=== PATIENT | female | born 1930 | race Caucasian/White ===

== ENCOUNTER → 2016-11-26 | Outpatient (CLI) | payer MEDICARE, OTHER ==
[~2016-11-26] MED LIST: HYDR7.5T32 PO; LEVO.1 PO; LISI10TA PO; METO50CR PO
[2016-11-26 13:19] LABS: AUTOMATED NEUTROPHIL # 2.8 TH/MM3 (1.8-7.7); BASOPHIL % 0.7 % (0.0-2.0); EOSINOPHIL # 0.2 TH/MM3 (0-0.4); EOSINOPHIL % 3.8 % (0.0-4.0); HEMATOCRIT 40.1 % (35.0-46.0); HEMO FLAGS DIFF FINAL; LYMPH % 27.4 % (9.0-44.0); LYMPHOCYTE # 1.3 TH/MM3 (1.0-4.8); MEAN CELL VOLUME 85.6 FL (80.0-100.0); MEAN CORPUSCULAR HEMOGLOBIN 28.8 PG (27.0-34.0); MEAN CORPUSCULAR HGB CONC 33.6 % (32.0-36.0); MONO % 11.4 % (0.0-8.0); NEUT % 56.7 % (16.0-70.0); PLATELET COUNT 162 TH/MM3 (150-450); RED BLOOD COUNT 4.68 MIL/MM3 (4.00-5.30); RED CELL DISTRIBUTION WIDTH 13.9 % (11.6-17.2); WHITE BLOOD COUNT 4.9 TH/MM3 (4.0-11.0)
[2016-11-26 13:52] LABS: BACTERIA, URINE OCC /hpf; BLOOD, URINE NEG (NEG); GLUCOSE,URINE NEG (NEG); KETONE, URINE NEG (NEG); NITRITE,URINE NEG (NEG); PH, URINE 5.5 (5.0-8.5); SQUAMOUS EPITHELIAL CELL URINE 1 /hpf (0-5); URINE COLOR YELLOW (YELLW/STRAW)
[2016-11-26 13:53] LABS: ANION GAP 6 MEQ/L (5-15); AST (GOT) 22 U/L (15-37); BICARBONATE 29.8 MEQ/L (21.0-32.0); BLOOD UREA NITROGEN 23 MG/DL (7-18); CHLORIDE 107 MEQ/L (98-107); GLOMERULAR FILTRATION RATE 56 ML/MIN (>89); GLUCOSE,FASTING 82 MG/DL (74-99); POTASSIUM 4.2 MEQ/L (3.5-5.1); SODIUM (NA) 143 MEQ/L (136-145)
[2016-11-26 13:55] LABS: AMPHETAMINE, URINE NEG (NEG); BARBITURATES, URINE NEG (NEG); COCAINE, URINE NEG (NEG)
[2016-11-26 14:02] LABS: ALKALINE PHOSPHATASE 64 U/L (45-117); ALT (GPT) 21 U/L (10-53); FREE T4 1.06 NG/DL (0.76-1.46); HDL CHOLESTEROL 75.3 MG/DL (40.0-60.0); LDL CHOLESTEROL 68 MG/DL (0-99); TOTAL BILIRUBIN ADULT 0.4 MG/DL (0.2-1.0)
[2016-11-28 03:52] LABS: RHEUMATOID FACTOR 9 IU/mL (<14)
[2016-11-28 15:54] LABS: ANA IFA TITER ND titer (()); ANA SER QL NEGATIVE (NEGATIVE); SJOGRENS AB SSA <1.0 NEG AI (<1.0 NEGATIVE); SJOGRENS AB SSB <1.0 NEG AI (<1.0 NEGATIVE)
[2016-11-30 03:51] LABS: DS DNA AB(CRITHIDIA) NEGATIVE (NEGATIVE); DS DNA AB(CRITHIDIA)TITER ND (<1:10)
== END ==
LOC: PLAB 09:49
PROVIDERS: ATTEND Allergy & Immunology
DX: I10 Essential (primary) hypertension (principal); E03.9 Hypothyroidism, unspecified; S09.90XD Unspecified injury of head, subsequent encounter
CPT/HCPCS: 36415; 80053; 80061; 80307; 81001; 84439; 84443; 85025; 86038; 86225; 86235; 86255; 86256; 86431

== ENCOUNTER → 2017-06-30 | Outpatient (CLI) | payer MEDICARE, OTHER ==
[2017-06-30 11:13] LABS: ANION GAP 8 MEQ/L (5-15); AST (GOT) 18 U/L (15-37); BLOOD UREA NITROGEN 26 MG/DL (7-18); CHLORIDE 107 MEQ/L (98-107); GLOMERULAR FILTRATION RATE 51 ML/MIN (>89); GLUCOSE,FASTING 87 MG/DL (74-99); POTASSIUM 3.6 MEQ/L (3.5-5.1); SODIUM (NA) 143 MEQ/L (136-145)
[2017-06-30 11:24] LABS: ALKALINE PHOSPHATASE 54 U/L (45-117); ALT (GPT) 16 U/L (10-53); FREE T4 1.83 NG/DL (0.76-1.46); HDL CHOLESTEROL 57.9 MG/DL (40.0-60.0); LDL CHOLESTEROL 72 MG/DL (0-99); TOTAL BILIRUBIN ADULT 0.7 MG/DL (0.2-1.0)
== END ==
LOC: PLAB 09:03
PROVIDERS: ATTEND Family Medicine
DX: I10 Essential (primary) hypertension (principal); E03.9 Hypothyroidism, unspecified
CPT/HCPCS: 36415; 80053; 80061; 84439; 84443

== ENCOUNTER → 2018-03-11 | Outpatient (CLI) | payer MEDICARE, OTHER ==
[2018-03-11 14:24] LABS: BACTERIA, URINE MANY /hpf; BILIRUBIN, URINE NEG (NEG); BLOOD, URINE NEG (NEG); GLUCOSE,URINE NEG (NEG); KETONE, URINE NEG (NEG); NITRITE,URINE POS (NEG); SQUAMOUS EPITHELIAL CELL URINE <1 /hpf (0-5); URINE COLOR YELLOW (YELLW/STRAW); URINE LEUKOCYTE ESTERASE MOD (NEG)
[2018-03-11 14:54] LABS: AUTOMATED NEUTROPHIL # 2.5 TH/MM3 (1.8-7.7); BASOPHIL % 0.7 % (0.0-2.0); EOSINOPHIL # 0.1 TH/MM3 (0-0.4); EOSINOPHIL % 2.8 % (0.0-4.0); HEMATOCRIT 41.1 % (35.0-46.0); HEMOGLOBIN 13.9 GM/DL (11.6-15.3); LYMPH % 25.5 % (9.0-44.0); LYMPHOCYTE # 1.1 TH/MM3 (1.0-4.8); MEAN CELL VOLUME 85.6 FL (80.0-100.0); MEAN CORPUSCULAR HEMOGLOBIN 28.9 PG (27.0-34.0); MEAN CORPUSCULAR HGB CONC 33.7 % (32.0-36.0); MEAN PLATELET VOLUME 9.4 FL (7.0-11.0); MONO % 13.2 % (0.0-8.0); MONOCYTE # 0.6 TH/MM3 (0-0.9); NEUT % 57.8 % (16.0-70.0); PLATELET COUNT 152 TH/MM3 (150-450); RED CELL DISTRIBUTION WIDTH 12.9 % (11.6-17.2); WHITE BLOOD COUNT 4.3 TH/MM3 (4.0-11.0)
[2018-03-11 14:57] LABS: ALBUMIN 3.9 GM/DL (3.4-5.0); ALT (GPT) 24 U/L (10-53); AST (GOT) 28 U/L (15-37); BICARBONATE 29.7 MEQ/L (21.0-32.0); BLOOD UREA NITROGEN 33 MG/DL (7-18); CALCIUM 9.5 MG/DL (8.5-10.1); CHLORIDE 107 MEQ/L (98-107); CREATININE 1.06 MG/DL (0.50-1.00); GLOMERULAR FILTRATION RATE 49 ML/MIN (>89); GLUCOSE,RANDOM 90 MG/DL (74-106); SODIUM (NA) 143 MEQ/L (136-145)
[2018-03-11 15:00] LABS: ALKALINE PHOSPHATASE 69 U/L (45-117); TOTAL BILIRUBIN ADULT 0.4 MG/DL (0.2-1.0); TOTAL PROTEIN 6.9 GM/DL (6.4-8.2)
== END ==
LOC: PLAB 10:37
PROVIDERS: ATTEND Allergy & Immunology
DX: M32.8 Other forms of systemic lupus erythematosus (principal)
CPT/HCPCS: 36415; 80053; 81001; 85025; 86038; 86225

== ENCOUNTER 2018-04-03 10:49 | Emergency (ER) | payer MEDICARE, OTHER ==
[2018-04-03 10:58] VITALS: BP 174/79; PULSE 67; RESP 15; TEMP 98.1; O2SAT 97
[2018-04-03] MEDS ORDERED: LISI20TA PO (11:32)
[2018-04-03] MEDS ORDERED: HYDR-3580 PO (11:32)
[2018-04-03] MEDS ORDERED: LEVO.1 PO (11:32)
[2018-04-03] MEDS ORDERED: METO1TAB43 PO (11:32)
--- NOTE | 2018-04-03 11:34 | PD ---
HPI Chief Complaint: Fall Time Seen by Provider: 11:17 Travel History International Travel<30 days: No Contact w/Intl Traveler<30days: No Traveled to known affect area: No History of Present Illness HPI 87-year-old female presents to the emergency department for evaluation of right shoulder and humerus pain after a fall that occurred approximately 1-2 weeks ago. Patient states that she was folding up her late 's close intake and then down stairs when she lost her balance and fell. She states she hit her head on the concrete, denies LOC. She complains of right shoulder and upper arm pain. She has no pain without movement of the arm. However, with movement, the pain will be exacerbated. Patient states she is not on anticoagulants, but is not sure which medication she is on. Mild severity. PFSH Past Medical History Cancer: Yes (SKIN) Cardiovascular Problems: No Diabetes: No Diminished Hearing: No Endocrine: Yes Gastrointestinal Disorders: No Genitourinary: Yes (UTI'S) Hepatitis: No Hiatal Hernia: No Hypertension: Yes Immune Disorder: Yes (LUPUS) Medical other: No Musculoskeletal: Yes (ARTHRITIS, LUMBAR HNP) Neurologic: Yes (TORI. LEG NUMBNESS) Psychiatric: No Reproductive: No Respiratory: No Immunizations Current: Yes Thyroid Disease: Yes Tetanus Vaccination: Unknown ?: Not Menopausal: Yes Past Surgical History Abdominal Surgery: Yes (APPY, CHOLECYSTECTOMY) AICD: No Eye Surgery: Yes (TORI. CATARACT EXTRACT.) Joint Replacement: Yes (TORI. KNEES) Oral Surgery: Yes (T & A) Pacemaker: No Other Surgery: Yes Social History Alcohol Use: Yes (2 GLASSES DAY) Tobacco Use: No Substance Use: No Allergies-Medications (Allergen,Severity, Reaction): Coded Allergies: No Known Allergies (Verified Adverse Reaction, Unknown, 04/03/18) Reported Meds & Prescriptions Reported Meds & Active Scripts Active Reported Synthroid (Levothyroxine Sodium) 100 Mcg Tab 100 Mcg PO DAILY Metoprolol Succinate ER 24 HR (Metoprolol Succinate) 100 Mg Tab 100 Mg PO DAILY Lisinopril-Hctz 20-12.5 mg Tab (Lisinopril/Hydrochlorothiazide) 20 Mg-12.5 Mg Tablet 0.5 Tab PO DAILY Hydrocodone-Acetamin 7.5-325 (Hydrocodone/Acetaminophen) 7.5 Mg-325 Mg Tablet 1 Tab PO Q4-6H Review of Systems Except as stated in HPI: all other systems reviewed are Neg Physical Exam Narrative GENERAL: Well-nourished, well-developed elderly female patient, afebrile. SKIN: Focused skin assessment warm/dry. HEAD: Normocephalic. Atraumatic. ENT: Mucosa pink and moist. No erythema or exudates. No uvular edema. No uvular , palatal, or tonsillar deviation. Airway patent. Nasal turbinates appear normal without nasal blood, purulent drainage or septal hematoma. Bilateral tympanic membranes clear without erythema or perforation. EYES: No scleral icterus. No injection or drainage. NECK: Supple, trachea midline. No JVD or lymphadenopathy. CARDIOVASCULAR: Regular rate and rhythm without murmurs, gallops, or rubs. Bilateral radial and pedal pulses are 2+. RESPIRATORY: Breath sounds equal bilaterally. No accessory muscle use. Lung sounds are clear to auscultation. GASTROINTESTINAL: Abdomen soft, non-tender, nondistended. MUSCULOSKELETAL: No cyanosis, or edema. No reproducible tenderness. No bony point tenderness. BACK: Nontender without obvious deformity. No CVA tenderness. Data Data Last Documented VS Vital Signs Date Time Temp Pulse Resp B/P (MAP) Pulse Ox O2 Delivery O2 Flow Rate FiO2 04/03/18 10:58 98.1 67 15 174/79 (110) 97 Orders Orders Humerus (Min 2vws) (04/03/18 ) Shoulder, Complete (>2vws) (04/03/18 ) Ct Brain W/O Iv Contrast(Rout) (04/03/18 ) Ice/Cold Pack (04/03/18 11:30) MDM Medical Decision Making Medical Screen Exam Complete: Yes Emergency Medical Condition: Yes Medical Record Reviewed: Yes Interpretation(s) Last Impressions Shoulder X-Ray 04/03/18 0000 Signed Impressions: CONCLUSION: 1. No acute abnormality. 2. Osteopenia. 3. Degenerative changes. 4. Suspected chronic rotator cuff injury. Humerus X-Ray 04/03/18 0000 Signed Impressions: CONCLUSION: Osteopenia without acute abnormality. Head CT 04/03/18 0000 Signed Impressions: CONCLUSION: 1. No acute intracranial abnormality. 2. Chronic small vessel ischemic change. Differential Diagnosis Contusion versus fracture versus dislocation versus close head injury versus intracranial abnormality Narrative Course 87-year-old female presents to the emergency department for evaluation after a fall. X-ray of the right shoulder, right humerus, CT of the brain are ordered and pending. X-ray of the right shoulder shows no acute abnormality; osteopenia; degenerative changes; suspected chronic rotator cuff injury.. X-ray of the right humerus shows osteopenia without acute abnormality. CT of the brain shows No acute intracranial abnormality; Chronic small vessel ischemic change. Imaging is reassuring. Patient instructed to take Tylenol [id number] and follow-up with her primary care physician. The patient was discharged in stable condition with instructions, including return instructions and follow up instructions. Diagnosis Primary Impression: Contusion of right shoulder Qualified Codes: S40.011A - Contusion of right shoulder, initial encounter Additional Impression: Closed head injury Qualified Codes: S09.90XA - Unspecified injury of head, initial encounter Referrals: Primary Care Physician call for appointment Patient Instructions: Contusion in Adults (ED), General Instructions Additional Instructions: Heating pad on low for 20 minutes 4-5 times daily. [id number] Tylenol every 4 hours as needed for pain. Follow-up with a primary care physician. Return to the emergency department for any acute worsening of symptoms. Med/Other Pt SpecificInfo: No Change to Meds Disposition: 01 DISCHARGE HOME Condition: Stable EzequielShelbi April 03, 2018 11:34
--- NOTE | 2018-04-03 12:51 | RADRPT ---
EXAM DATE: 04/03/2018 12:40 PM EDT AGE/SEX: 87 years / Female INDICATIONS: Fall, right upper arm and shoulder pain with limited ROM CLINICAL DATA: This is the patient's initial encounter. Patient reports that signs and symptoms have been present for 2 weeks and indicates a pain score of 8/10. MEDICAL/SURGICAL HISTORY: Lupus. . spinal COMPARISON: None. FINDINGS: Bony structures are intact and in normal alignment. Osseous density is reduced. Soft tissues are unr emarkable. Anchoring screws overlie the humeral head. No radiopaque foreign bodies seen. Granulomas w ithin the right lung base. Scoliotic and degenerative spine. CONCLUSION: Osteopenia without acute abnormality. Electronically signed by: Vinayak Hasasn MD 04/03/2018 12:50 PM EDT
--- NOTE | 2018-04-03 12:53 | RADRPT ---
EXAM DATE: 04/03/2018 12:47 PM EDT AGE/SEX: 87 years / Female INDICATIONS: Right shoulder pain, fall. CLINICAL DATA: This is the patient's initial encounter. Patient reports that signs and symptoms have been present for 2 weeks and indicates a pain score of 8/10. MEDICAL/SURGICAL HISTORY: Lupus. None. COMPARISON: None. FINDINGS: Bony structures are intact and in normal alignment. Mild degenerative changes involving the AC joint and glenohumeral joint. Small calcifications associated with the humeral head.. Osseous density is r educed. Anchoring screws overlie the humeral head. Soft tissues are unremarkable. No radiopaque fore ign bodies seen. CONCLUSION: 1. No acute abnormality. 2. Osteopenia. 3. Degenerative changes. 4. Suspected chronic rotator cuff injury. Electronically signed by: Vinayak Hassan MD 04/03/2018 12:52 PM EDT
--- NOTE | 2018-04-03 13:22 | RADRPT ---
EXAM DATE: 04/03/2018 1:14 PM EDT AGE/SEX: 87 years / Female INDICATIONS: Trauma, fall two weeks ago. CLINICAL DATA: This is the patient's initial encounter. Patient reports that signs and symptoms have been present for 2 weeks and indicates a pain score of 4/10. MEDICAL/SURGICAL HISTORY: Hypertension. Lupus. Carcinoma, skin cancer. Cholecystectomy. RADIATION DOSE: 50.41 CTDI (mGy) COMPARISON: CT of the brain May 28, 2015. TECHNIQUE: CT of the head without contrast. Using automated exposure control and adjustment of the mA and/or kV according to patient size, radiation dose was kept as low as reasonably achievable to ob tain optimal diagnostic quality images. FINDINGS: Cerebrum: Periventricular low attenuation change involving both cerebral hemispheres. Similar to the prior exam. The ventricles are normal for age. No evidence of midline shift, mass lesion, hemorrhag e or acute infarction. No extraaxial fluid collections are seen. Posterior Fossa: The cerebellum and brainstem are intact. The 4th ventricle is midline. The cerebe llopontine angle is unremarkable. Extracranial: The visualized portion of the orbits is intact. Skull: The calvaria is intact. No evidence of skull fracture. CONCLUSION: 1. No acute intracranial abnormality. 2. Chronic small vessel ischemic change. Electronically signed by: Vinayak Hassan MD 04/03/2018 1:21 PM EDT
[2018-04-03 13:49] VITALS: BP 168/78
== END 2018-04-03 13:53 | disposition home or self-care (01) ==
LOC: PHEFT 10:49
DX: S40.011A Contusion of right shoulder, initial encounter (principal); S09.90XA Unspecified injury of head, initial encounter; W19.XXXA Unspecified fall, initial encounter; I10 Essential (primary) hypertension; M32.9 Systemic lupus erythematosus, unspecified; M19.90 Unspecified osteoarthritis, unspecified site; E07.9 Disorder of thyroid, unspecified; Z85.828 Personal history of other malignant neoplasm of skin
CPT/HCPCS: 70450; 73030; 73060; 99284

== ENCOUNTER → 2018-05-05 | Outpatient (CLI) | payer MEDICARE, OTHER ==
[~2018-05-05] MED LIST changes: +HYDR-3580 PO; -HYDR7.5T32 PO; -LISI10TA PO; +LISI20TA PO; +METO1TAB43 PO; -METO50CR PO
[2018-05-05 14:07] LABS: AUTOMATED NEUTROPHIL # 3.5 TH/MM3 (1.8-7.7); BASOPHIL # 0.1 TH/MM3 (0-0.2); BASOPHIL % 0.9 % (0.0-2.0); EOSINOPHIL # 0.2 TH/MM3 (0-0.4); HEMATOCRIT 44.4 % (35.0-46.0); HEMOGLOBIN 14.7 GM/DL (11.6-15.3); LYMPH % 23.7 % (9.0-44.0); LYMPHOCYTE # 1.4 TH/MM3 (1.0-4.8); MEAN CELL VOLUME 84.2 FL (80.0-100.0); MEAN CORPUSCULAR HEMOGLOBIN 27.9 PG (27.0-34.0); MEAN CORPUSCULAR HGB CONC 33.1 % (32.0-36.0); MEAN PLATELET VOLUME 9.5 FL (7.0-11.0); MONO % 10.7 % (0.0-8.0); MONOCYTE # 0.6 TH/MM3 (0-0.9); NEUT % 60.7 % (16.0-70.0); PLATELET COUNT 157 TH/MM3 (150-450); RED BLOOD COUNT 5.27 MIL/MM3 (4.00-5.30); RED CELL DISTRIBUTION WIDTH 13.5 % (11.6-17.2); WHITE BLOOD COUNT 5.8 TH/MM3 (4.0-11.0)
[2018-05-05 16:41] LABS: ALT (GPT) 17 U/L (10-53); AST (GOT) 22 U/L (15-37); BICARBONATE 28.4 MEQ/L (21.0-32.0); BLOOD UREA NITROGEN 29 MG/DL (7-18); CALCIUM 9.7 MG/DL (8.5-10.1); CHLORIDE 106 MEQ/L (98-107); CREATININE 1.11 MG/DL (0.50-1.00); GLOMERULAR FILTRATION RATE 46 ML/MIN (>89); GLUCOSE,RANDOM 89 MG/DL (74-106); SODIUM (NA) 142 MEQ/L (136-145)
[2018-05-05 16:43] LABS: ALKALINE PHOSPHATASE 66 U/L (45-117); TOTAL BILIRUBIN ADULT 0.9 MG/DL (0.2-1.0)
== END ==
LOC: PLAB 11:36
PROVIDERS: ATTEND Allergy & Immunology
DX: G56.02 Carpal tunnel syndrome, left upper limb (principal)
CPT/HCPCS: 36415; 80053; 85025

== ENCOUNTER 2018-11-03 14:05 | Inpatient (IN) ==
--- NOTE | 2018-11-03 15:08 | CT ---
EXAM DATE: 11/03/2018 3:02 PM EST AGE/SEX: 88 years / Female INDICATIONS: Patient fell yesterday CLINICAL DATA: This is the patient's initial encounter. Patient reports that signs and symptoms have been present for 1 day and indicates a pain score of 3/10. MEDICAL/SURGICAL HISTORY: Hypertension. Lupus. None. RADIATION DOSE: 34.51 CTDI (mGy) COMPARISON: [facility], CT HEAD W/O CONTRAST, 07/30/2018. [facility], CT BRAIN W/O CONTRAST, 04/03/2018. . TECHNIQUE: CT of the head without contrast. Using automated exposure control and adjustment of the mA and/or kV according to patient size, radiation dose was kept as low as reasonably achievable to ob tain optimal diagnostic quality images. DICOM format image data is available electronically for revi ew and comparison. FINDINGS: Cerebrum: Mild cerebral atrophy is noted. Moderate to severe periventricular and subcortical white m atter small vessel ischemic changes are noted bilaterally. There are scattered old lacunar infarcts w ithin the bilateral basal ganglia. No acute infarct, acute hemorrhage, midline shift or extra-axial f luid collections are noted. Posterior Fossa: The cerebellum and brainstem are intact. The 4th ventricle is midline. The cerebe llopontine angle is unremarkable. Extracranial: The visualized portion of the orbits is intact. Skull: The calvaria is intact. No evidence of skull fracture. CONCLUSION: 1. Mild cerebral atrophy. 2. Moderate to severe periventricular and subcortical white matter small vessel ischemic changes dawit aterally. 3. 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 4. No acute infarct, acute hemorrhage, midline shift or extra-axial fluid collections. . Electronically signed by: Marc Sahu MD Board Certified Radiologist 11/03/2018 3:07 PM EST
--- NOTE | 2018-11-03 15:34 | XR ---
EXAM DATE: 11/03/2018 3:27 PM EST AGE/SEX: 88 years / Female INDICATIONS: Fall. Pre op. Congestion. CLINICAL DATA: This is the patient's subsequent encounter. Patient reports that signs and symptoms h ave been present for 1 day and indicates a pain score of 5/10. MEDICAL/SURGICAL HISTORY: None. None. COMPARISON: [facility] [place], CHEST 1V SINGLE AP, 07/30/2018. . FINDINGS: A single AP view of the chest demonstrates the lungs to be symmetrically aerated without evidence of mass, infiltrate or effusion. The cardiomediastinal contours are unremarkable. Degenerative changes and scoliosis of the thoracolumbar spine are noted. Degenerative changes and possible rotator cuff pa thology are noted involving the shoulders bilaterally. CONCLUSION: 1. No acute cardiopulmonary disease. 2. Degenerative changes and scoliosis of the thoracolumbar spine. 3. Degenerative changes and possible rotator cuff pathology involving the shoulders bilaterally. Electronically signed by: Marc Sahu MD Board Certified Radiologist 11/03/2018 3:32 PM EST
--- NOTE | 2018-11-03 15:34 | XR ---
EXAM DATE: 11/03/2018 3:28 PM EST AGE/SEX: 88 years / Female INDICATIONS: Fall. Right hip pain. Limited movement. CLINICAL DATA: This is the patient's initial encounter. Patient reports that signs and symptoms have been present for 1 day and indicates a pain score of 9/10. MEDICAL/SURGICAL HISTORY: None. None. COMPARISON: [facility] [place], PELVIS AP 1V, 07/30/2018. . FINDINGS: There is a new transverse nondisplaced impaction fracture through the neck of the proximal right femu r. This was not present on the prior study. The femoral head remains within the acetabulum. There is good alignment of the SI joints and pubic symphysis. The bony structures the pelvis are grossly intac t. CONCLUSION: New transverse nondisplaced impaction fracture through the neck of the proximal right femur. Electronically signed by: Wilner Santiago MD Board Certified Radiologist 11/03/2018 3:33 PM EST
[2018-11-03 15:45] LABS: Alkaline Phosphatase 96 U/L (45-117); Total Protein 6.1 g/dL (6.4-8.2)
[2018-11-03 15:58] LABS: Baso % (Auto) 0.5 % (0.0-2.0); Eos # (Auto) 0.1 th/mm3 (0.0-0.4); Eos % (Auto) 1.7 % (0.0-4.0); Hemoglobin 12.1 gm/dL (11.6-15.3); Lymph # (Auto) 0.7 th/mm3 (1.0-4.8); Mean Corpuscular HGB Conc 32.7 % (32.0-36.0); Mean Corpuscular Hemoglobin 28.7 pg (27.0-34.0); Mean Corpuscular Volume 87.7 fL (80.0-100.0); Mean Platelet Volume 8.9 fL (7.0-11.0); Mono # (Auto) 0.9 th/mm3 (0.0-0.9); Mono % (Auto) 13.6 % (0.0-8.0); Neut % (Auto) 74.2 % (16.0-70.0); Platelet Count 121 th/mm3 (150-450); Red Blood Count 4.22 mil/mm3 (4.00-5.30); Red Cell Distribution Width 14.7 % (11.6-17.2); White Blood Count 6.8 th/mm3 (4.0-11.0)
[2018-11-03 16:00] LABS: Alanine Aminotransferase 52 U/L (10-53); Albumin 3.4 g/dL (3.4-5.0); Anion Gap 3 meq/L (5-15); Blood Urea Nitrogen 33 mg/dL (7-18); Calcium 9.1 mg/dL (8.5-10.1); Carbon Dioxide 29.4 meq/L (21.0-32.0); Chloride 107 meq/L (98-107); Glomerular Filtration Rate 44 mL/min (>89); Glucose,Random 125 mg/dL (74-106); Magnesium 1.9 mg/dL (1.5-2.5); Sodium 139 meq/L (136-145)
--- NOTE | 2018-11-03 16:00 | ED ---
HPI General Chief Complaint: Fall Stated Complaint: hip pain Time Seen by Provider: 11/03/18 14:31 Source: patient and EMS Mode of arrival: EMS Limitations: other (poor historian) History of Present Illness HPI Narrative: 88-year-old female that presents to the ED via ambulance for evaluation of right hip pain after a fall today. Patient states that she uses a walker to get about. Per patient she tripped and fell and landed on her right hip and she has not been able to get up since. She states that she did hit her head but did not lose consciousness. Denies any urinary or bowel movement issues. No passing out event. No chest pain or shortness of breath. Has not seen anybody for this. Injury occurred today. Pain per patient is 2 out of 10 without moving and is 10 out of 10 when she moves. No previous injuries per patient. Patient is somewhat of a poor historian and cannot really provide much information about her medical conditions. She does tell me that she does not take any blood thinners. She does live at home. Related Data Home Medications Medication Instructions Recorded Confirmed atenolol 25 mg PO DAILY 07/30/18 11/03/18 donepezil [Aricept] 5 mg PO DAILY 07/30/18 11/03/18 duloxetine 60 mg PO DAILY 07/30/18 11/03/18 hydroxychloroquine 200 mg PO DAILY 07/30/18 11/03/18 levothyroxine [Synthroid] 88 mcg PO DAILY 07/30/18 11/03/18 lisinopril-hydrochlorothiazide 1 tab PO DAILY 07/30/18 11/03/18 solifenacin [Vesicare] 10 mg PO DAILY 07/30/18 11/03/18 trazodone 50 mg PO DAILY 07/30/18 11/03/18 Allergies Allergy/AdvReac Type Severity Reaction Status Date / Time No Known Allergies Allergy Verified 11/03/18 14:18 Review of Systems ROS: all other systems reviewed are negative FOR[facility]LY [facility] Medical History Medical History Anxiety (Acute) Chronic back pain (Acute) HBP (high blood pressure) (Acute) Hypothyroidism (Acute) Lupus (Acute) Sleep disorder (Acute) Surgical History Surgical History History of knee surgery (Acute) Social History Social History Substance History: No History of Abuse Second Hand Smoke Exposure: No Smoking Status: Never smoker How Often Do You Have a Drink Containing Alcohol: 2 to 4 times a month Recent Travel in [facility] within the Last 8 Weeks: No Recent Out of Country Travel within the Last 8 Weeks: No Immunization History Tetanus Immunization: Unsure Exam Narrative Exam Narrative: GENERAL: Well appaering SKIN: Focused skin assessment warm/dry. HEAD: Atraumatic. Normocephalic. EYES: Pupils equal and round. No scleral icterus. No injection or drainage. ENT: No nasal bleeding or discharge. Mucous membranes pink and moist. Tongue is midline. No Uvula deviation. NECK: Trachea midline. No JVD. CARDIOVASCULAR: Regular rate and rhythm. No murmur appreciated. RESPIRATORY: No accessory muscle use. Clear to auscultation. Breath sounds equal bilaterally. GASTROINTESTINAL: Abdomen soft, non-tender, nondistended. Hepatic and splenic margins not palpable. MUSCULOSKELETAL: No obvious deformities. No clubbing. No cyanosis. No edema. Full range of motion of the upper and lower extremities bilaterally with exception of the right hip were patient has a lot of pain with any movement. She does have a hematoma in the area. No obvious shortening noted. 2+ pulses bilaterally. No lumbar, thoracic, cervical spine tenderness to palpation. NEUROLOGICAL: Awake and alert. No obvious cranial nerve deficits. Motor grossly within normal limits. Normal speech. PSYCHIATRIC: Appropriate mood and affect; insight and judgment normal. Course Initial Documented Vital Signs Temperature 98.3 F 11/03/18 14:15 Pulse Rate 52 L 11/03/18 14:15 Respiratory Rate 18 11/03/18 14:15 Blood Pressure 145/83 H 11/03/18 14:15 Pulse Oximetry 98 11/03/18 14:15 Last Documented Vital Signs Temperature 97.3 F L 11/07/18 08:35 Pulse Rate 87 11/07/18 08:35 Respiratory Rate 19 11/07/18 08:35 Blood Pressure 136/79 11/07/18 08:35 Pulse Oximetry 96 11/06/18 23:52 Medical Decision Making AMISH Attestation AMISH supervised visit: Yes Attestation: I, Dr. Nguyen, have reviewed the advance practice practitioner's documentation and am in agreement, met with the patient face to face, made the diagnosis, and the medical decision making was done by me. *My assessment and Findings: Hip fracture MDM Narrative Medical decision making narrative: 88-year-old female who presents to the ED for evaluation of right hip injury after a fall today. Patient was properly examined and was found to have signs and symptoms consistent with appears to be fall. X-ray and labs were ordered. X-ray did show what appears to be a fracture. At this time patient will require admission for further treatment and management and likely surgery. Case discussed with my attending Dr. Nguyen who agrees with this plan. SEBAS was paged. Dr. Holland agrees to admission to his service. Patient was admitted Medical Screen Exam Complete: Yes Emergency Medical Condition: Yes Differential Diagnosis Differential Diagnosis: Hip fracture versus bruise versus contusion versus fall Medical Records Medical records reviewed: Yes I reviewed the patient's medical records. Lab Data Lab results reviewed: Yes I reviewed the patient's lab results. Result diagrams: 11/06/18 10:45 11/06/18 04:07 Lab Results 11/03/18 11/03/18 11/03/18 Range/Units 15:10 15:40 15:42 WBC 6.8 (4.0-11.0) th/mm3 RBC 4.22 (4.00-5.30) mil/mm3 Hgb 12.1 (11.6-15.3) gm/dL Hct 37.0 (35.0-46.0) % MCV 87.7 (80.0-100.0) fL MCH 28.7 (27.0-34.0) pg MCHC 32.7 (32.0-36.0) % RDW 14.7 (11.6-17.2) % Plt Count 121 L (150-450) th/mm3 MPV 8.9 (7.0-11.0) fL Neut % (Auto) 74.2 H (16.0-70.0) % Lymph % (Auto) 10.0 (9.0-44.0) % Bullock % (Auto) 13.6 H (0.0-8.0) % Eos % (Auto) 1.7 (0.0-4.0) % Baso % (Auto) 0.5 (0.0-2.0) % Neut # (Auto) 5.0 (1.8-7.7) th/mm3 Lymph # (Auto) 0.7 L (1.0-4.8) th/mm3 Bullock # (Auto) 0.9 (0.0-0.9) th/mm3 Eos # (Auto) 0.1 (0.0-0.4) th/mm3 Baso # (Auto) 0.0 (0.0-0.2) th/mm3 WBC Differential . Differential Comment Auto diff final PT 11.2 (9.8-11.6) sec INR 1.1 Ratio APTT 25.9 (23.4-31.7) sec Puncture Site Patient Temperature O2 Saturation (90-100) % ABG pH (7.380-7.420) ABG pCO2 (38-42) mmHg ABG pO2 (61-120) mmHg ABG HCO3 (22-26) mmol/L ABG O2 Content (12.0-20.0) Vol % ABG Base Excess (-2-2) mmol/L ABG Methemoglobin (0-2) % Martir Test Hemoglobin (12.0-16.0) G/DL Carboxyhemoglobin (0-4) % O2 Delivery Device Liter Flow L/M Critical Value Sodium 139 (136-145) meq/L Potassium 5.0 (3.5-5.1) meq/L Chloride 107 (98-107) meq/L Carbon Dioxide 29.4 (21.0-32.0) meq/L Anion Gap 3 L (5-15) meq/L BUN 33 H (7-18) mg/dL Creatinine 1.16 H (0.50-1.00) mg/dL Estimated GFR 44 L (>89) mL/min Random Glucose 125 H (74-106) mg/dL Calcium 9.1 (8.5-10.1) mg/dL Magnesium 1.9 (1.5-2.5) mg/dL Total Bilirubin 0.7 (0.2-1.0) mg/dL AST 93 H (15-37) U/L ALT 52 (10-53) U/L Alkaline Phosphatase 96 (45-117) U/L Total Creatine Kinase (26-192) U/L Total Protein 6.1 L (6.4-8.2) g/dL Albumin 3.4 (3.4-5.0) g/dL Urine Color (Yellw/Straw) Urine Clarity (Clear) Urine pH (5.0-8.5) Ur Specific Flynn (1.002-1.035) Urine Protein (Neg-Trace) mg/dL Urine Glucose (UA) (Negative) mg/dL Urine Ketones (Negative) mg/dL Urine Occult Blood (Negative) Urine Nitrate (Negative) Urine Bilirubin (Negative) Urine Urobilinogen (Less than 2) mg/dL Ur Leukocyte Esterase (Negative) Urine RBC (0-3) /hpf Urine WBC (0-5) /hpf Urine WBC Clumps (None) Ur Squamous Epith Cells (0-5) /hpf Urine Bacteria (None) /hpf Urine Mucus (Occasional) /lpf Micro UA Comment Ur Microscopic Review Urine Culture Comments 11/03/18 11/04/18 11/04/18 Range/Units 16:13 04:30 09:40 WBC (4.0-11.0) th/mm3 RBC (4.00-5.30) mil/mm3 Hgb (11.6-15.3) gm/dL Hct (35.0-46.0) % MCV (80.0-100.0) fL MCH (27.0-34.0) pg MCHC (32.0-36.0) % RDW (11.6-17.2) % Plt Count (150-450) th/mm3 MPV (7.0-11.0) fL Neut % (Auto) (16.0-70.0) % Lymph % (Auto) (9.0-44.0) % Bullock % (Auto) (0.0-8.0) % Eos % (Auto) (0.0-4.0) % Baso % (Auto) (0.0-2.0) % Neut # (Auto) (1.8-7.7) th/mm3 Lymph # (Auto) (1.0-4.8) th/mm3 Bullock # (Auto) (0.0-0.9) th/mm3 Eos # (Auto) (0.0-0.4) th/mm3 Baso # (Auto) (0.0-0.2) th/mm3 WBC Differential Differential Comment PT (9.8-11.6) sec INR Ratio APTT (23.4-31.7) sec Puncture Site Patient Temperature O2 Saturation (90-100) % ABG pH (7.380-7.420) ABG pCO2 (38-42) mmHg ABG pO2 (61-120) mmHg ABG HCO3 (22-26) mmol/L ABG O2 Content (12.0-20.0) Vol % ABG Base Excess (-2-2) mmol/L ABG Methemoglobin (0-2) % Martir Test Hemoglobin (12.0-16.0) G/DL Carboxyhemoglobin (0-4) % O2 Delivery Device Liter Flow L/M Critical Value Sodium 139 (136-145) meq/L Potassium 5.0 (3.5-5.1) meq/L Chloride 105 (98-107) meq/L Carbon Dioxide 25.9 (21.0-32.0) meq/L Anion Gap 8 (5-15) meq/L BUN 34 H (7-18) mg/dL Creatinine 1.26 H (0.50-1.00) mg/dL Estimated GFR 40 L (>89) mL/min Random Glucose 122 H (74-106) mg/dL Calcium 8.5 (8.5-10.1) mg/dL Magnesium (1.5-2.5) mg/dL Total Bilirubin (0.2-1.0) mg/dL AST (15-37) U/L ALT (10-53) U/L Alkaline Phosphatase (45-117) U/L Total Creatine Kinase 77 (26-192) U/L Total Protein (6.4-8.2) g/dL Albumin (3.4-5.0) g/dL Urine Color Yellow (Yellw/Straw) Urine Clarity Hazy H (Clear) Urine pH 5.0 (5.0-8.5) Ur Specific Flynn 1.020 (1.002-1.035) Urine Protein Negative (Neg-Trace) mg/dL Urine Glucose (UA) Negative (Negative) mg/dL Urine Ketones Negative (Negative) mg/dL Urine Occult Blood Negative (Negative) Urine Nitrate Negative (Negative) Urine Bilirubin Negative (Negative) Urine Urobilinogen Less than 2 (Less than 2) mg/dL Ur Leukocyte Esterase Moderate H (Negative) Urine RBC 1 (0-3) /hpf Urine WBC 74 H (0-5) /hpf Urine WBC Clumps Few H (None) Ur Squamous Epith Cells <1 (0-5) /hpf Urine Bacteria Few H (None) /hpf Urine Mucus Few H (Occasional) /lpf Micro UA Comment Cath-culture ind Ur Microscopic Review Not Reportable Urine Culture Comments Cath-cult indicated 11/05/18 11/05/18 11/05/18 Range/Units 05:52 15:20 15:35 WBC 8.8 (4.0-11.0) th/mm3 RBC 3.08 L (4.00-5.30) mil/mm3 Hgb 9.3 L D (11.6-15.3) gm/dL Hct 26.5 L (35.0-46.0) % MCV 86.1 (80.0-100.0) fL MCH 30.1 (27.0-34.0) pg MCHC 35.0 (32.0-36.0) % RDW 15.0 (11.6-17.2) % Plt Count 105 L (150-450) th/mm3 MPV 9.0 (7.0-11.0) fL Neut % (Auto) 72.2 H (16.0-70.0) % Lymph % (Auto) 9.9 (9.0-44.0) % Bullock % (Auto) 16.5 H (0.0-8.0) % Eos % (Auto) 1.2 (0.0-4.0) % Baso % (Auto) 0.2 (0.0-2.0) % Neut # (Auto) 6.4 (1.8-7.7) th/mm3 Lymph # (Auto) 0.9 L (1.0-4.8) th/mm3 Bullock # (Auto) 1.5 H (0.0-0.9) th/mm3 Eos # (Auto) 0.1 (0.0-0.4) th/mm3 Baso # (Auto) 0.0 (0.0-0.2) th/mm3 WBC Differential . Differential Comment Auto diff final PT (9.8-11.6) sec INR Ratio APTT (23.4-31.7) sec Puncture Site Right radial Patient Temperature 98.6 O2 Saturation 97 (90-100) % ABG pH 7.41 (7.380-7.420) ABG pCO2 35 L (38-42) mmHg ABG pO2 167 H (61-120) mmHg ABG HCO3 22 (22-26) mmol/L ABG O2 Content 12.8 (12.0-20.0) Vol % ABG Base Excess -2.3 L (-2-2) mmol/L ABG Methemoglobin 1.4 (0-2) % Martir Test Present Hemoglobin 9.1 L (12.0-16.0) G/DL Carboxyhemoglobin 1.5 (0-4) % O2 Delivery Device Nasal cannula Liter Flow 2.00 L/M Critical Value No Sodium 137 (136-145) meq/L Potassium 4.3 (3.5-5.1) meq/L Chloride 103 (98-107) meq/L Carbon Dioxide 26.5 (21.0-32.0) meq/L Anion Gap 8 (5-15) meq/L BUN 42 H (7-18) mg/dL Creatinine 1.62 H (0.50-1.00) mg/dL Estimated GFR 30 L (>89) mL/min Random Glucose 100 (74-106) mg/dL Calcium 8.2 L (8.5-10.1) mg/dL Magnesium (1.5-2.5) mg/dL Total Bilirubin 0.5 (0.2-1.0) mg/dL AST 52 H (15-37) U/L ALT 38 (10-53) U/L Alkaline Phosphatase 93 (45-117) U/L Total Creatine Kinase (26-192) U/L Total Protein 5.1 L D (6.4-8.2) g/dL Albumin 2.5 L D (3.4-5.0) g/dL Urine Color (Yellw/Straw) Urine Clarity (Clear) Urine pH (5.0-8.5) Ur Specific Flynn (1.002-1.035) Urine Protein (Neg-Trace) mg/dL Urine Glucose (UA) (Negative) mg/dL Urine Ketones (Negative) mg/dL Urine Occult Blood (Negative) Urine Nitrate (Negative) Urine Bilirubin (Negative) Urine Urobilinogen (Less than 2) mg/dL Ur Leukocyte Esterase (Negative) Urine RBC (0-3) /hpf Urine WBC (0-5) /hpf Urine WBC Clumps (None) Ur Squamous Epith Cells (0-5) /hpf Urine Bacteria (None) /hpf Urine Mucus (Occasional) /lpf Micro UA Comment Ur Microscopic Review Urine Culture Comments 11/06/18 11/06/18 Range/Units 04:07 10:45 WBC (4.0-11.0) th/mm3 RBC (4.00-5.30) mil/mm3 Hgb 9.5 L (11.6-15.3) gm/dL Hct 28.2 L (35.0-46.0) % MCV (80.0-100.0) fL MCH (27.0-34.0) pg MCHC (32.0-36.0) % RDW (11.6-17.2) % Plt Count (150-450) th/mm3 MPV (7.0-11.0) fL Neut % (Auto) (16.0-70.0) % Lymph % (Auto) (9.0-44.0) % Bullock % (Auto) (0.0-8.0) % Eos % (Auto) (0.0-4.0) % Baso % (Auto) (0.0-2.0) % Neut # (Auto) (1.8-7.7) th/mm3 Lymph # (Auto) (1.0-4.8) th/mm3 Bullock # (Auto) (0.0-0.9) th/mm3 Eos # (Auto) (0.0-0.4) th/mm3 Baso # (Auto) (0.0-0.2) th/mm3 WBC Differential Differential Comment PT (9.8-11.6) sec INR Ratio APTT (23.4-31.7) sec Puncture Site Patient Temperature O2 Saturation (90-100) % ABG pH (7.380-7.420) ABG pCO2 (38-42) mmHg ABG pO2 (61-120) mmHg ABG HCO3 (22-26) mmol/L ABG O2 Content (12.0-20.0) Vol % ABG Base Excess (-2-2) mmol/L ABG Methemoglobin (0-2) % Martir Test Hemoglobin (12.0-16.0) G/DL Carboxyhemoglobin (0-4) % O2 Delivery Device Liter Flow L/M Critical Value Sodium 136 (136-145) meq/L Potassium 4.5 (3.5-5.1) meq/L Chloride 105 (98-107) meq/L Carbon Dioxide 24.1 (21.0-32.0) meq/L Anion Gap 7 (5-15) meq/L BUN 41 H (7-18) mg/dL Creatinine 1.35 H (0.50-1.00) mg/dL Estimated GFR 37 L (>89) mL/min Random Glucose 81 (74-106) mg/dL Calcium 8.0 L (8.5-10.1) mg/dL Magnesium (1.5-2.5) mg/dL Total Bilirubin (0.2-1.0) mg/dL AST (15-37) U/L ALT (10-53) U/L Alkaline Phosphatase (45-117) U/L Total Creatine Kinase (26-192) U/L Total Protein (6.4-8.2) g/dL Albumin (3.4-5.0) g/dL Urine Color (Yellw/Straw) Urine Clarity (Clear) Urine pH (5.0-8.5) Ur Specific Flynn (1.002-1.035) Urine Protein (Neg-Trace) mg/dL Urine Glucose (UA) (Negative) mg/dL Urine Ketones (Negative) mg/dL Urine Occult Blood (Negative) Urine Nitrate (Negative) Urine Bilirubin (Negative) Urine Urobilinogen (Less than 2) mg/dL Ur Leukocyte Esterase (Negative) Urine RBC (0-3) /hpf Urine WBC (0-5) /hpf Urine WBC Clumps (None) Ur Squamous Epith Cells (0-5) /hpf Urine Bacteria (None) /hpf Urine Mucus (Occasional) /lpf Micro UA Comment Ur Microscopic Review Urine Culture Comments Imaging Data Attestation: I personally reviewed and interpreted this imaging study as follows : Radiologist's impression: Hip X-Ray 11/03/18 00:00 CONCLUSION: 1. Right hip arthroplasty in gross anatomic alignment without acute fracture. Head CT 11/03/18 14:37 CONCLUSION: 1. Mild cerebral atrophy. 2. Moderate to severe periventricular and subcortical white matter small vessel ischemic changes bilaterally. 3. 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 4. No acute infarct, acute hemorrhage, midline shift or extra-axial fluid collections. . Hip X-Ray 11/03/18 14:37 CONCLUSION: New transverse nondisplaced impaction fracture through the neck of the proximal right femur. Chest X-Ray 11/03/18 15:14 CONCLUSION: 1. No acute cardiopulmonary disease. 2. Degenerative changes and scoliosis of the thoracolumbar spine. 3. Degenerative changes and possible rotator cuff pathology involving the shoulders bilaterally. ECG Data Attestation: I personally reviewed and interpreted this ECG as follows: Interpretation: EKG shows sinus bradycardia but no sign of acute ischemia and arrhythmia otherwise read by me and attending. Discharge Plan Discharge Disposition Patient Disposition: ED Admit(ED Internal Use Only) Discharge Condition Condition: Good Discharge Order Discharge Orders: Discharge Order (Routine); Ordered 11/07/18 Ordered By: Mercedez Kruse ED Use Only Admit Order (Routine); Ordered 11/03/18 Ordered By: Geovany Guerrero Discharge Details Anticipated Discharge Date: 11/07/18 Diagnosis: Closed hip fracture Physicians Team ED Provider: Bradford Nguyen ED Midlevel Provider: Geovany Guerrero Primary Care Provider: Twan Mayorga Attending Provider: Delbert Velazquez Other Providers: Johnson King ; [facility],Agency Status ED Status: Left Department Discharge Information Discharge Date/Time: 11/03/18 17:20
[2018-11-03 16:02] LABS: Aspartate Aminotransferase 93 U/L (15-37)
[2018-11-03] MEDS ORDERED: Naloxone Inj 0.4 MG/ML Vial IV.PUSH PRN (16:07)
[2018-11-03] MEDS ORDERED: Morphine Inj 4 MG/ML Vial IV.PUSH PRN ×2 (16:07→22:20)
[2018-11-03 16:08] LABS: INR 1.1 Ratio
[2018-11-03] MEDS ORDERED: Bisacodyl 10 MG Supp RECTAL PRN (16:09)
[2018-11-03 16:17] LABS: Activated Partial Thrombo Time 25.9 sec (23.4-31.7); Prothrombin Time 11.2 sec (9.8-11.6)
[2018-11-03] MEDS: Sodium Chloride 0.45 % Inj 1,000 ML IV.CONT SCH (16:37)
--- NOTE | 2018-11-03 16:37 | P.HPIM ---
History of Present Illness Primary Care Physician: Twan Mayorga MD Chief Complaint: Right hip pain History of Present Illness: This is a 88-year-old female with a history of lupus , chronic back pain, hypertension, sleep disorder, hypothyroidism and anxiety. She presents to the emergency department complaining of right hip pain after a fall today. Patient states she was getting out of the bathroom when she slipped and fell and landed on her right hip. Since then she was not able to get up because of severe right hip pain worse with movement. She also hit her head but denies loss of consciousness. Denies any symptoms prior to the fall. Trauma workup shows right femur fracture and ED recommended admission by medical service with consult orthopedic surgery. At this time patient complains of right hip pain as well as lower back pain. No radiculopathy, neuropathy or incontinence. EKG independently reviewed by me with sinus bradycardia rate of 51 on beta-jimena. CHEST X-RAY: No infiltrate, pneumothorax or mediastinal widening. Image interpreted by me. All other systems reviewed negative Inpatient Certification Inpatient Certification: I certify that the inpatient services were ordered in accordance with Medicare regulations governing the order. This includes certification that hospital inpatient services are reasonable and necessary and in the case of services not specified as inpatient-only under 42 CFR 419.22(n), that they are appropriately provided as inpatient services in accordance to with the 2-midnight benchmark under 43 CFR 412.3(e) Estimated Total Length of Stay (Days): 2 Plans for Post Hospital Care: SNF Review of Systems Review of Systems: all other systems reviewed are negative [facility] Medical History Medical History Anxiety (Acute) Chronic back pain (Acute) HBP (high blood pressure) (Acute) Hypothyroidism (Acute) Lupus (Acute) Sleep disorder (Acute) Surgical History Surgical History History of knee surgery (Acute) Social History Social History Substance History: No History of Abuse Second Hand Smoke Exposure: No Smoking Status: Never smoker How Often Do You Have a Drink Containing Alcohol: 2 to 4 times a month Recent Travel in [facility] within the Last 8 Weeks: No Recent Out of Country Travel within the Last 8 Weeks: No Immunization History Tetanus Immunization: Unsure Medications and Allergies Allergies Allergy/AdvReac Type Severity Reaction Status Date / Time No Known Allergies Allergy Verified 11/03/18 14:18 Home Medications Medication Instructions Recorded Confirmed Type alprazolam 0.25 mg PO BID 07/30/18 11/03/18 History atenolol 25 mg PO DAILY 07/30/18 11/03/18 History donepezil [Aricept] 5 mg PO DAILY 07/30/18 11/03/18 History duloxetine 60 mg PO DAILY 07/30/18 11/03/18 History hydrocodone-acetaminophen 2 tab PO BID PRN 07/30/18 11/03/18 History hydroxychloroquine 200 mg PO DAILY 07/30/18 07/30/18 History levothyroxine [Synthroid] 88 mcg PO DAILY 07/30/18 11/03/18 History lisinopril-hydrochlorothiazide 1 tab PO DAILY 07/30/18 11/03/18 History solifenacin [Vesicare] 10 mg PO DAILY 07/30/18 11/03/18 History trazodone 50 mg PO DAILY 07/30/18 11/03/18 History Active Medications: Active Medications Alprazolam (Xanax) 0.25 mg PO BID PRN PRN Reason: ANXIETY Atenolol (Tenormin) 25 mg PO DAILY [facility] Bisacodyl (Dulcolax Supp) 10 mg RECTAL DAILY PRN PRN Reason: SEVERE CONSITIPATION Donepezil HCl (Aricept) 5 mg PO DAILY [facility] Duloxetine HCl (Cymbalta) 60 mg PO DAILY [facility] Sodium Chloride (1/2 Normal Saline Inj) 1,000 mls @ 50 mls/hr IV.CONT .Q20H [facility] Lactulose (Lactulose Liq) 30 ml PO DAILY PRN PRN Reason: SEVERE CONSITIPATION Levothyroxine Sodium (Synthroid) 88 mcg PO DAILY [facility] Morphine Sulfate (Morphine Inj) 4 mg IV.PUSH Q3H PRN PRN Reason: BREAKTHROUGH PAIN Naloxone HCl (Narcan Inj) 0.4 mg IV.PUSH UNSCH PRN PRN Reason: SEE LABEL COMMENTS Non-Formulary Medication (Solifenacin [Vesicare]) 10 mg PO DAILY [facility] Ondansetron HCl (Zofran Inj) 4 mg IV.PUSH Q6H PRN PRN Reason: NAUSEA OR VOMITING Oxycodone HCl (Roxicodone) 5 mg PO Q4H PRN PRN Reason: PAIN SCALE 3 TO 5 Oxycodone HCl (Roxicodone) 10 mg PO Q4H PRN PRN Reason: PAIN SCALE 6 TO 10 Senna/Docusate Sodium (Minnie-Colace) 1 tab PO BID [facility] Sennosides (Senokot) 17.2 mg PO Q12H PRN PRN Reason: Moderate Constipation Sodium Chloride (Ns Flush) 2 ml IV.FLUSH BID [facility] Sodium Chloride (Ns Flush) 2 ml IV.FLUSH UNSCH PRN PRN Reason: FLUSH AFTER USING IV ACCESS Trazodone HCl (Desyrel) 50 mg PO DAILY [facility] Physical Exam Vital signs: Last Vital Signs Temp 98.3 F 11/03/18 14:15 Pulse 52 L 11/03/18 14:15 Resp 18 11/03/18 14:15 BP 145/83 H 11/03/18 14:15 Pulse Ox 98 11/03/18 14:15 Intake & Output 11/01/18 11/02/18 11/03/18 11/04/18 06:59 06:59 06:59 06:59 Weight 55.792 kg Narrative: ITS Impressions Head CT 11/03/18 14:37 CONCLUSION: 1. Mild cerebral atrophy. 2. Moderate to severe periventricular and subcortical white matter small vessel ischemic changes bilaterally. 3. 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 4. No acute infarct, acute hemorrhage, midline shift or extra-axial fluid collections. . Hip X-Ray 11/03/18 14:37 CONCLUSION: New transverse nondisplaced impaction fracture through the neck of the proximal right femur. Chest X-Ray 11/03/18 15:14 CONCLUSION: 1. No acute cardiopulmonary disease. 2. Degenerative changes and scoliosis of the thoracolumbar spine. 3. Degenerative changes and possible rotator cuff pathology involving the shoulders bilaterally. Additional findings Additional findings: GENERAL: Well-developed, well-nourished in no distress SKIN: Warm and dry. HEAD: Atraumatic. Normocephalic. EYES: Pupils equal and round. No scleral icterus. No injection or drainage. ENT: No nasal bleeding or discharge. Mucous membranes pink and moist. NECK: Trachea midline. No JVD. CARDIOVASCULAR: Regular rhythm, bradycardic RESPIRATORY: No accessory muscle use. Clear to auscultation. Breath sounds equal bilaterally. GASTROINTESTINAL: Abdomen soft, non-tender, nondistended. MUSCULOSKELETAL: Extremities without clubbing, cyanosis, or edema. Right hip tenderness. Right lower extremity shortened and externally rotated NEUROLOGICAL: Awake and alert. No obvious cranial nerve deficits. Motor grossly within normal limits. Five out of 5 muscle strength in the arms and legs. Normal speech. PSYCHIATRIC: Appropriate mood and affect; insight and judgment normal. Results Labs CBC & Chem 7: 11/03/18 15:42 11/03/18 15:[address] 11/03/18 14:37 CONCLUSION: 1. Mild cerebral atrophy. 2. Moderate to severe periventricular and subcortical white matter small vessel ischemic changes bilaterally. 3. 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 4. No acute infarct, acute hemorrhage, midline shift or extra-axial fluid collections. . Hip X-Ray 11/03/18 14:37 CONCLUSION: New transverse nondisplaced impaction fracture through the neck of the proximal right femur. Chest X-Ray 11/03/18 15:14 CONCLUSION: 1. No acute cardiopulmonary disease. 2. Degenerative changes and scoliosis of the thoracolumbar spine. 3. Degenerative changes and possible rotator cuff pathology involving the shoulders bilaterally. Caprini VTE Risk Assessment Caprini VTE Risk Assessment: Moderate/High Risk (score >= 2) Caprini Risk Assessment Model: Point Value = 1 Point Value = 2 Point Value = 3 Point Value = 5 Age 41-60 Minor surgery BMI > 25 kg/m2 Swollen legs Varicose veins or History of unexplained or recurrent spontaneous Oral contraceptives or hormone replacement Sepsis (< 1 month) Serious lung disease, including pneumonia (< 1 month) Abnormal pulmonary function Acute myocardial infarction Congestive heart failure (< 1 month) History of inflammatory bowel disease Medical patient at bed rest Age 61-74 Arthroscopic surgery Major open surgery (> 45 min) Laparoscopic surgery (> 45 min) Malignancy Confined to bed (> 72 hours) Immobilizing plaster cast Central venous access Age >= 75 History of VTE Family history of VTE Factor V Leiden Prothrombin [id number] Lupus anticoagulant Anticardiolipin antibodies Elevated serum homocysteine Heparin-induced thrombocytopenia Other congenital or acquired thrombophilia Stroke (< 1 month) Elective arthroplasty Hip, pelvis, or leg fracture Acute spinal cord injury (< 1 month) Prophylaxis Regimen: Total Risk Factor Score Risk Level Prophylaxis Regimen 0-1 Low Early ambulation 2 Moderate Order ONE of the following: *Sequential Compression Device (SCD) *Heparin 5000 units SQ BID 3-4 Higher Order ONE of the following medications: *Heparin 5000 units SQ TID *Enoxaparin/Lovenox 40 mg SQ daily (WT < 150 kg, CrCl > 30 mL/min) *Enoxaparin/Lovenox 30 mg SQ daily (WT < 150 kg, CrCl > 10-29 mL/min) *Enoxaparin/Lovenox 30 mg SQ BID (WT < 150 kg, CrCl > 30 mL/min) AND/OR *Sequential Compression Device (SCD) 5 or more Highest Order ONE of the following medications: *Heparin 5000 units SQ TID (Preferred with Epidurals) *Enoxaparin/Lovenox 40 mg SQ daily (WT < 150 kg, CrCl > 30 mL/min) *Enoxaparin/Lovenox 30 mg SQ daily (WT < 150 kg, CrCl > 10-29 mL/min) *Enoxaparin/Lovenox 30 mg SQ BID (WT < 150 kg, CrCl > 30 mL/min) AND *Sequential Compression Device (SCD) Assessment and Plan Plan This is a 88-year-old female with a history of lupus, chronic back pain, hypertension, sleep disorder, hypothyroidism and anxiety. She presents to the emergency department complaining of right hip pain after a fall today. Patient states she was getting out of the bathroom when she slipped and fell and landed on her right hip. Since then she was not able to get up because of severe right hip pain worse with movement. She also hit her head but denies loss of consciousness. Denies any symptoms prior to the fall. Trauma workup shows right femur fracture Transverse nondisplaced impacted right femur fracture status post fall. Patient will be admitted for definitive repair by orthopedic surgery. Pain management with oxycodone and IV morphine counseled regarding narcotics. Patient will remain on bedrest Renal insufficiency. Check CK and urinalysis and start IV hydration Slightly elevated AST suspect rhabdomyolysis. Avoid hepatotoxins and monitor DVT prophylaxis with SCD and early ambulation. Pharmacological prophylaxis when cleared by orthopedic surgery
[2018-11-03] MEDS: Levothyroxine 88 MCG Tablet PO SCH ×2 (17:08→19:42)
[2018-11-03] MEDS ORDERED: Sugammadex Inj 200 MG/2 ML Vial IV.PUSH ONE (21:10)
--- NOTE | 2018-11-03 21:21 | P.CONOP ---
[facility] Orthopedics Consult Note - [facility] Consult date: 11/03/18 Chief complaint: RIGHT HIP FX, FALL Narrative: The patient is a 88-year-old female who lives with her son and sustained a fall in her own house today. She usually ambulates either with a walker with a cane. She sustained a traumatic injury to her right hip. She also had a bump on the top of her head. She did not require sutures for that. She did not have loss of consciousness. X-rays of the right hip revealed a displaced femoral neck fracture. She was admitted to the medical service and consultation was placed with the undersigned. Review of Systems 12 point review of systems otherwise negative PMF - History History Provided By: Patient - Medical History Medical History: Medical History (Last Reviewed 11/03/18 @ 21:15 by Johnson King MD) Anxiety Chronic back pain HBP (high blood pressure) Hypothyroidism Lupus Sleep disorder - Surgical History Surgical History: Surgical History (Last Reviewed 11/03/18 @ 21:15 by Johnson King MD) History of knee surgery - Family History Family History: Family History (Last Reviewed 11/03/18 @ 21:15 by Johnson King MD) Other Diabetes mellitus - Tobacco History Second Hand Smoke Exposure: No Smoking Status: Never smoker - Alcohol History How Often Do You Have a Drink Containing Alcohol: 2 to 4 times a month - Substance Use History Substance History: No History of Abuse - Travel History Recent Travel in the [place] Within the Last 8 Weeks: No Recent Travel Out of the Country Within the Last 8 Weeks: No - Immunization History Tetanus Immunization: Unsure Hx Influenza Vaccine This Season: No Medications and Allergies Active Medications: Active Medications Alprazolam (Xanax) 0.25 mg PO BID PRN PRN Reason: ANXIETY Atenolol (Tenormin) 25 mg PO DAILY [facility] Bisacodyl (Dulcolax Supp) 10 mg RECTAL DAILY PRN PRN Reason: SEVERE CONSITIPATION Donepezil HCl (Aricept) 5 mg PO DAILY [facility] Duloxetine HCl (Cymbalta) 60 mg PO DAILY [facility] Sodium Chloride (1/2 Normal Saline Inj) 1,000 mls @ 50 mls/hr IV.CONT .Q20H [facility] Last Admin: 11/03/18 16:37 Dose: 50 mls/hr Lactulose (Lactulose Liq) 30 ml PO DAILY PRN PRN Reason: SEVERE CONSITIPATION Levothyroxine Sodium (Synthroid) 88 mcg PO DAILY@0600 [facility] Last Admin: 11/03/18 19:42 Dose: Not Given Morphine Sulfate (Morphine Inj) 4 mg IV.PUSH Q3H PRN PRN Reason: BREAKTHROUGH PAIN Naloxone HCl (Narcan Inj) 0.4 mg IV.PUSH UNSCH PRN PRN Reason: SEE LABEL COMMENTS Ondansetron HCl (Zofran Inj) 4 mg IV.PUSH Q6H PRN PRN Reason: NAUSEA OR VOMITING Oxycodone HCl (Roxicodone) 5 mg PO Q4H PRN PRN Reason: PAIN SCALE 3 TO 5 Oxycodone HCl (Roxicodone) 10 mg PO Q4H PRN PRN Reason: PAIN SCALE 6 TO 10 Senna/Docusate Sodium (Minnie-Colace) 1 tab PO BID [facility] Sennosides (Senokot) 17.2 mg PO Q12H PRN PRN Reason: Moderate Constipation Sodium Chloride (Ns Flush) 2 ml IV.FLUSH BID [facility] Sodium Chloride (Ns Flush) 2 ml IV.FLUSH UNSCH PRN PRN Reason: FLUSH AFTER USING IV ACCESS Tolterodine Tartrate (Detrol La) 4 mg PO DAILY [facility] Trazodone HCl (Desyrel) 50 mg PO DAILY [facility] Allergies Allergy/AdvReac Type Severity Reaction Status Date / Time No Known Allergies Allergy Verified 11/03/18 14:18 Home Medications Medication Instructions Recorded Confirmed Type alprazolam 0.25 mg PO BID 07/30/18 11/03/18 History atenolol 25 mg PO DAILY 07/30/18 11/03/18 History donepezil [Aricept] 5 mg PO DAILY 07/30/18 11/03/18 History duloxetine 60 mg PO DAILY 07/30/18 11/03/18 History hydrocodone-acetaminophen 2 tab PO BID PRN 07/30/18 11/03/18 History hydroxychloroquine 200 mg PO DAILY 07/30/18 11/03/18 History levothyroxine [Synthroid] 88 mcg PO DAILY 07/30/18 11/03/18 History lisinopril-hydrochlorothiazide 1 tab PO DAILY 07/30/18 11/03/18 History solifenacin [Vesicare] 10 mg PO DAILY 07/30/18 11/03/18 History trazodone 50 mg PO DAILY 07/30/18 11/03/18 History Exam Vital signs: Vital Signs 11/03/18 14:15 11/03/18 16:31 11/03/18 17:15 Temperature 98.3 F 98.1 F Pulse Rate 52 L 86 52 L Respiratory Rate 18 17 16 Blood Pressure 145/83 H 139/60 145/68 H Pulse Oximetry 98 98 99 11/03/18 19:40 11/03/18 20:08 Temperature 97.3 F L 98.5 F Pulse Rate 55 L 53 L Respiratory Rate 16 20 Blood Pressure 124/101 H 180/74 H Pulse Oximetry 96 95 Intake & Output 11/03/18 11/03/18 11/04/18 06:59 18:59 06:59 Intake Total 240 / 240 Balance 240 / 240 Weight 47.8 kg Intake: Oral 240 / 240 Other: # Voids 1 Date of Last Bowel Movement 11/02/18 # Bowel Movements 0 Weight On Admission 47.8 kg - Constitutional no acute distress Comments: Her son is at the bedside - Routine HEENT Exam Head: Present: normocephalic, atraumatic - Additional findings Additional findings: Right lower extremity shortened and externally rotated. Tender to palpation about the right hip. Skin intact. Knee no effusion. Bilateral totally incisions noted calves are soft. Homans sign is negative. Distal pulses are 2 + distal versus neurologic examination intact. Results - Labs Result Diagrams: 11/03/18 15:42 11/03/18 15:10 Labs: Laboratory Results - last 24 hr 11/03/18 11/03/18 11/03/18 15:10 15:40 15:42 WBC 6.8 RBC 4.22 Hgb 12.1 Hct 37.0 MCV 87.7 MCH 28.7 MCHC 32.7 RDW 14.7 Plt Count 121 L MPV 8.9 Neut % (Auto) 74.2 H Lymph % (Auto) 10.0 [place] % (Auto) 13.6 H Eos % (Auto) 1.7 Baso % (Auto) 0.5 Neut # (Auto) 5.0 Lymph # (Auto) 0.7 L [place] # (Auto) 0.9 Eos # (Auto) 0.1 Baso # (Auto) 0.0 WBC Differential . Differential Comment Auto diff final PT 11.2 INR 1.1 APTT 25.9 Sodium 139 Potassium 5.0 Chloride 107 Carbon Dioxide 29.4 Anion Gap 3 L BUN 33 H Creatinine 1.16 H Estimated GFR 44 L Random Glucose 125 H Calcium 9.1 Magnesium 1.9 Total Bilirubin 0.7 AST 93 H ALT 52 Alkaline Phosphatase 96 Total Creatine Kinase Total Protein 6.1 L Albumin 3.4 11/03/18 16:13 WBC RBC Hgb Hct MCV MCH MCHC RDW Plt Count MPV Neut % (Auto) Lymph % (Auto) [place] % (Auto) Eos % (Auto) Baso % (Auto) Neut # (Auto) Lymph # (Auto) [place] # (Auto) Eos # (Auto) Baso # (Auto) WBC Differential Differential Comment PT INR APTT Sodium Potassium Chloride Carbon Dioxide Anion Gap BUN Creatinine Estimated GFR Random Glucose Calcium Magnesium Total Bilirubin AST ALT Alkaline Phosphatase Total Creatine Kinase 77 Total Protein Albumin - Diagnostic results Imaging: Impressions Head CT 11/03/18 14:37 CONCLUSION: 1. Mild cerebral atrophy. 2. Moderate to severe periventricular and subcortical white matter small vessel ischemic changes bilaterally. 3. 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 4. No acute infarct, acute hemorrhage, midline shift or extra-axial fluid collections. . Hip X-Ray 11/03/18 14:37 CONCLUSION: New transverse nondisplaced impaction fracture through the neck of the proximal right femur. Chest X-Ray 11/03/18 15:14 CONCLUSION: 1. No acute cardiopulmonary disease. 2. Degenerative changes and scoliosis of the thoracolumbar spine. 3. Degenerative changes and possible rotator cuff pathology involving the shoulders bilaterally. Assessment and Plan - Problem List (1) Displaced fracture of right femoral neck Code(s): S72.001A - Fracture of unspecified part of neck of right femur, initial encounter for closed fracture Status: Acute - Assessment and Plan Her condition of right displaced femoral neck fracture was discussed and the options of treatment were discussed. She appears to have some degree of osteopenia/osteoporosis and some degree of comminution with a slightly varus shortened femoral neck fracture. Recommendation is right hip hemiarthroplasty for fracture. The risks and benefits and alternatives of treatment were discussed. Included in the discussion was the risk of infection, nerve damage, blood vessel damage, anesthetic complications, medical complications and unforeseen possible complications. All of her questions were answered. She was to press on with surgery. A detailed informed consent has been obtained. A mid-level provider my office, nurse practitioner or PA, may see this patient in a follow-up basis continue with with the plan of care.
[2018-11-03] MEDS ORDERED: Bupivacaine Liposomal PF 1.3% Inj 20 ML Vial ONE (21:58)
[2018-11-03] MEDS ORDERED: CEFAZOLIN IV.SIG ONE (22:00)
[2018-11-03] MEDS ORDERED: SODIUM CHLOR 0.9% IV.SIG ONE (22:00)
[2018-11-03] MEDS ORDERED: Post-op Orders (for Pharmacy) OTHER STA (22:14)
--- NOTE | 2018-11-03 22:14 | P.OP ---
- Preoperative Diagnosis (1) Displaced fracture of right femoral neck - Postoperative Diagnosis (1) Displaced fracture of right femoral neck Date of procedure: 11/03/18 Procedure: Right hip hemiarthroplasty for fracture using [employer]ard size 13 guerrero cementless stem with a 43 mm bipolar femoral head Anesthesia: BEVERLY Surgeon: Johnson King MD Services Program Manager: Chad Kim Estimated blood loss (mL): 150 Pathology: none sent Operation and Findings: occupational therapist assistants is advanced registered nurse practitioner. His skill set is medically necessary for the performance of the operation. The patient brought the operating room placed under general anesthesia. She is placed in lateral decubitus position with the right hip up. Right hip was prepped and draped in usual sterile fashion. IV antibiotics were given. Timeout was completed. Posterior lateral incision was made take this up to his tissue. Hemostasis obtained with use of electrocautery. The fascial layer was split in line with the incision into the gluteus florentino. Deep retractors were placed. The abductor tendons were elevated and the piriformis identified and resected off the posterior superior aspect of the femur and tagged with #2 FiberWire. We then took down the posterior capsule and tagged the posterior capsule. The comminuted fracture site was noted. Retractors on either side of the neck. Oscillating saw used to complete the cut. Large rongeur was used to remove the fragments the major fragment removed and the head measured and found to be 44 mm. We inspected the acetabulum. No major arthritis. We then placed to retract about the proximal femur. Sequential broaching was performed up to size 13. Trial reduction excellent range of motion and stability. Final implant impacted into position. A 13 mm excellent stability. The head length was standard. The hip reduced. Excellent stability. Irrigate irrigated out with copious amounts of irrigation. Proceeded to anatomically repair the capsule and then the piriformis and then proceeded closed in layers of absorbable suture. Subcuticular on the skin Steri-Strips applied. The patient was awoken returned to recovery room in stable condition.
[2018-11-03] MEDS ORDERED: fentaNYL Citrate Inj 100 MCG/2 ML Ampul ONE (22:43)
[2018-11-03] MEDS ORDERED: Chlorhexidine Gluconate 2% 1 Pack (2 Cloths) TOPICAL ONE ×2 (22:50→23:15)
[2018-11-03] MEDS ORDERED: Bupivacaine Liposomal PF 1.3% Inj 20 ML Vial INFILTRATN ONE (22:56)
[2018-11-03] MEDS ORDERED: Sodium Chlor 0.9% Inj 500 ML IV.SIG SCH (23:00)
[2018-11-03] MEDS ORDERED: Sodium Chlor 0.9% Inj 500 ML IV.CONT ONE (23:15)
--- NOTE | 2018-11-03 23:21 | XR ---
EXAM DATE: 11/03/2018 11:12 PM EST AGE/SEX: 88 years / Female INDICATIONS: Post op right total hip replacement. CLINICAL DATA: This is the patient's initial encounter. Patient reports that signs and symptoms have been present for 1 day and indicates a pain score of Nonresponsive. MEDICAL/SURGICAL HISTORY: None. None. [place] [facility] [place]EL[place] 2[place] 11/03/2018. . FINDINGS: Interval right hip arthroplasty. Arthroplasty components are well-positioned and in gross anatomic al ignment. No additional acute fractures. Degenerative changes of the left hip. Remainder of exam is un changed. CONCLUSION: 1. Right hip arthroplasty in gross anatomic alignment without acute fracture. Electronically signed by: Vamsi Oropeza MD Board Certified Radiologist 11/03/2018 11:20 PM Melecio LEE
[2018-11-03] MEDS ORDERED: *morphine SULFATE 4 MG/ML PERIprocedure ONLY ONE (23:25)
[2018-11-03] MEDS: Senna/Docusate Sodium 8.6/50 MG Tablet PO SCH (23:46)
[2018-11-04] MEDS: ceFAZolin Inj 1 GM in Sodium Chlor 0.9% Inj 100 ML IV.SIG SCH ×3 (04:04→21:01)
[2018-11-04 05:12] LABS: Calcium 8.5 mg/dL (8.5-10.1); Carbon Dioxide 25.9 meq/L (21.0-32.0)
[2018-11-04] MEDS: Levothyroxine 88 MCG Tablet PO SCH (06:03)
--- NOTE | 2018-11-04 08:17 | ECG ---
Date Performed: 11/03/2018 Time Performed: 14:20:41 PTAGE: 88 years EKG: SINUS BRADYCARDIA BORDERLINE ECG PREVIOUS TRACING : 07/30/2018 14.38 Compared to previous tracing, the patient now appears to be in sinus bradycardia. DOCTOR: Annalisa Garcia Interpretating Date/Time 11/04/2018 08:16:41
[2018-11-04] MEDS ORDERED: SOLIFENACIN 10 MG PO SCH (09:00)
--- NOTE | 2018-11-04 09:18 | P.PNOP ---
Subjective Interval history: Patient confused. Eating breakfast. RN at bedside. Physical Exam Vital signs: Vital Signs 11/03/18 14:15 11/03/18 16:31 11/03/18 17:15 Temperature 98.3 F 98.1 F Pulse Rate 52 L 86 52 L Respiratory Rate 18 17 16 Blood Pressure 145/83 H 139/60 145/68 H Pulse Oximetry 98 98 99 11/03/18 19:40 11/03/18 20:08 11/03/18 22:40 Temperature 97.3 F L 98.5 F 98 F Pulse Rate 55 L 53 L 72 Respiratory Rate 16 20 12 Blood Pressure 124/101 H 180/74 H 181/95 H Pulse Oximetry 96 95 98 11/03/18 22:45 11/03/18 23:00 11/03/18 23:15 Temperature Pulse Rate 68 63 58 L Respiratory Rate 19 20 20 Blood Pressure 164/98 H 179/76 H 168/76 H Pulse Oximetry 98 96 98 11/03/18 23:30 11/03/18 23:45 11/03/18 23:50 Temperature Pulse Rate 59 L 59 L Respiratory Rate 22 16 Blood Pressure 161/67 H 176/71 H Pulse Oximetry 98 98 97 11/04/18 00:10 11/04/18 03:37 11/04/18 04:15 Temperature 97.8 F 97.6 F Pulse Rate 58 L 54 L Respiratory Rate 16 20 17 Blood Pressure 146/103 H 139/62 Pulse Oximetry 95 96 11/04/18 08:00 Temperature 98 F Pulse Rate 54 L Respiratory Rate 19 Blood Pressure 128/59 L Pulse Oximetry 94 L Intake & Output 11/03/18 11/04/18 11/04/18 18:59 06:59 18:59 Intake Total 240 / 240 680 / 680 Output Total 150 / 150 Balance 240 / 240 530 / 530 Weight 47.8 kg 47.8 kg Intake: IV 100 / 100 Ancef Inj 1 GM In NS Inj 100 ML 100 / 100 @ 200 mls/hr IV.SIG Q8H [facility] Rx #:[id number] Oral 240 / 240 180 / 180 Anesthesia Amount 400 / 400 Output: Estimated Blood Loss 150 / 150 Other: # Voids 1 0 Date of Last Bowel Movement 11/02/18 11/02/18 # Bowel Movements 0 0 Weight On Admission 47.8 kg Narrative: Right hip dressing C/D/I calves soft distally motor, neuro, and sensory intact knee immobilizer in place Results - Labs CBC & Chem 7: 11/03/18 15:42 11/04/18 04:30 Laboratory Results - last 24 hr 11/03/18 11/03/18 11/03/18 15:10 15:40 15:42 WBC 6.8 RBC 4.22 Hgb 12.1 Hct 37.0 MCV 87.7 MCH 28.7 MCHC 32.7 RDW 14.7 Plt Count 121 L MPV 8.9 Neut % (Auto) 74.2 H Lymph % (Auto) 10.0 [place] % (Auto) 13.6 H Eos % (Auto) 1.7 Baso % (Auto) 0.5 Neut # (Auto) 5.0 Lymph # (Auto) 0.7 L [place] # (Auto) 0.9 Eos # (Auto) 0.1 Baso # (Auto) 0.0 WBC Differential . Differential Comment Auto diff final PT 11.2 INR 1.1 APTT 25.9 Sodium 139 Potassium 5.0 Chloride 107 Carbon Dioxide 29.4 Anion Gap 3 L BUN 33 H Creatinine 1.16 H Estimated GFR 44 L Random Glucose 125 H Calcium 9.1 Magnesium 1.9 Total Bilirubin 0.7 AST 93 H ALT 52 Alkaline Phosphatase 96 Total Creatine Kinase Total Protein 6.1 L Albumin 3.4 11/03/18 11/04/18 16:13 04:30 WBC RBC Hgb Hct MCV MCH MCHC RDW Plt Count MPV Neut % (Auto) Lymph % (Auto) [place] % (Auto) Eos % (Auto) Baso % (Auto) Neut # (Auto) Lymph # (Auto) [place] # (Auto) Eos # (Auto) Baso # (Auto) WBC Differential Differential Comment PT INR APTT Sodium 139 Potassium 5.0 Chloride 105 Carbon Dioxide 25.9 Anion Gap 8 BUN 34 H Creatinine 1.26 H Estimated GFR 40 L Random Glucose 122 H Calcium 8.5 Magnesium Total Bilirubin AST ALT Alkaline Phosphatase Total Creatine Kinase 77 Total Protein Albumin - Imaging Impressions Hip X-Ray 11/03/18 00:00 CONCLUSION: 1. Right hip arthroplasty in gross anatomic alignment without acute fracture. Head CT 11/03/18 14:37 CONCLUSION: 1. Mild cerebral atrophy. 2. Moderate to severe periventricular and subcortical white matter small vessel ischemic changes bilaterally. 3. 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 4. No acute infarct, acute hemorrhage, midline shift or extra-axial fluid collections. . Hip X-Ray 11/03/18 14:37 CONCLUSION: New transverse nondisplaced impaction fracture through the neck of the proximal right femur. Chest X-Ray 11/03/18 15:14 CONCLUSION: 1. No acute cardiopulmonary disease. 2. Degenerative changes and scoliosis of the thoracolumbar spine. 3. Degenerative changes and possible rotator cuff pathology involving the shoulders bilaterally. Assessment and Plan - Problem List (1) Displaced fracture of right femoral neck Code(s): S72.001A - Fracture of unspecified part of neck of right femur, initial encounter for closed fracture Status: Acute - Assessment and Plan POD #1 Right Hip Hemiarthroplasty Pain management Medical management Physical therapy - WBAT Leave dressing in place x 1 week. If there is significant drainage, then remove dressing Clean with alcohol and apply a new dry dressing. D/C planning- anticipating SNF Monitor
[2018-11-04] MEDS: Senna/Docusate Sodium 8.6/50 MG Tablet PO SCH ×2 (09:32→21:02)
[2018-11-04] MEDS: traZODone 50 MG Tablet PO SCH (09:32)
[2018-11-04] MEDS: Duloxetine 60 MG DR Capsule PO SCH (09:32)
[2018-11-04] MEDS: Atenolol 25 MG Tablet PO SCH (09:32)
[2018-11-04] MEDS: Tolterodine Tartrate LA 4 MG Capsule PO SCH (09:32)
[2018-11-04 10:30] LABS: Bacteria,Urine Few /hpf; Bilirubin,Urine Negative (Negative); Clarity,Urine Hazy (Clear); Color,Urine Yellow (Yellw/Straw); Glucose,Urine (UA) Negative (Negative); Leukocyte Esterase,Urine Moderate (Negative); Mucus,Urine Few /lpf (Occasional); Nitrite,Urine Negative (Negative); Squamous Epithelial Cell,Urine <1 /hpf (0-5)
--- NOTE | 2018-11-04 11:22 | P.PN ---
Subjective Interval history: Follow-up visit for right femur fracture and ADELA. Patient seen and examined sitting up in recliner with son present. Patient is oriented to self and place. She does endorse right hip pain but reports relief with pain medication. Denies any fevers, chills, cough, nausea, vomiting or diarrhea. Son reports patient is incontinent from time to time at home and wears incontinence depends. Urinary retention reported by nurse requiring Ortez catheterization. Physical Exam Vital signs: Vital Signs 11/03/18 14:15 11/03/18 16:31 11/03/18 17:15 Temperature 98.3 F 98.1 F Pulse Rate 52 L 86 52 L Respiratory Rate 18 17 16 Blood Pressure 145/83 H 139/60 145/68 H Pulse Oximetry 98 98 99 11/03/18 19:40 11/03/18 20:08 11/03/18 22:40 Temperature 97.3 F L 98.5 F 98 F Pulse Rate 55 L 53 L 72 Respiratory Rate 16 20 12 Blood Pressure 124/101 H 180/74 H 181/95 H Pulse Oximetry 96 95 98 11/03/18 22:45 11/03/18 23:00 11/03/18 23:15 Temperature Pulse Rate 68 63 58 L Respiratory Rate 19 20 20 Blood Pressure 164/98 H 179/76 H 168/76 H Pulse Oximetry 98 96 98 11/03/18 23:30 11/03/18 23:45 11/03/18 23:50 Temperature Pulse Rate 59 L 59 L Respiratory Rate 22 16 Blood Pressure 161/67 H 176/71 H Pulse Oximetry 98 98 97 11/04/18 00:10 11/04/18 03:37 11/04/18 04:15 Temperature 97.8 F 97.6 F Pulse Rate 58 L 54 L Respiratory Rate 16 20 17 Blood Pressure 146/103 H 139/62 Pulse Oximetry 95 96 11/04/18 08:00 11/04/18 09:38 Temperature 98 F Pulse Rate 54 L Respiratory Rate 19 Blood Pressure 128/59 L Pulse Oximetry 94 L 98 Intake & Output 11/03/18 11/04/18 11/04/18 18:59 06:59 18:59 Intake Total 240 / 240 680 / 680 Output Total 150 / 150 Balance 240 / 240 530 / 530 Weight 47.8 kg 47.8 kg Intake: IV 100 / 100 Ancef Inj 1 GM In NS Inj 100 ML 100 / 100 @ 200 mls/hr IV.SIG Q8H [facility] Rx #:[id number] Oral 240 / 240 180 / 180 Anesthesia Amount 400 / 400 Output: Estimated Blood Loss 150 / 150 Other: # Voids 1 0 Date of Last Bowel Movement 11/02/18 11/02/18 11/02/18 # Bowel Movements 0 0 Weight On Admission 47.8 kg Narrative: GENERAL: Well-developed, well-nourished in no distress SKIN: Warm and dry. HEAD: Atraumatic. Normocephalic. EYES: Pupils equal and round. No scleral icterus. No injection or drainage. ENT: No nasal bleeding or discharge. Mucous membranes pink and moist. NECK: Trachea midline. CARDIOVASCULAR: Regular rhythm. RESPIRATORY: No accessory muscle use. Clear to auscultation. Breath sounds equal bilaterally. GASTROINTESTINAL/: Abdomen soft, non-tender, nondistended. Ortez catheter with clear yellow urine. MUSCULOSKELETAL: Extremities without clubbing, cyanosis, or edema. Right hip dressing dry and intact. RLE with + dorsalis pedis pulse, + sensation and movement. NEUROLOGICAL: Awake and alert. No obvious cranial nerve deficits. Motor grossly within normal limits. Normal speech. PSYCHIATRIC: Poor historian. - Urinary Catheter Management Indwelling Urethral Catheter Cath placed during this visit: yes Reason for continuing: Acute urinary retention Insertion date: 11/04/18 Insertion time: 10:30 Results - Labs CBC & Chem 7: 11/03/18 15:42 11/04/18 04:30 Laboratory Results - last 24 hr 11/03/18 11/03/18 11/03/18 15:10 15:40 15:42 WBC 6.8 RBC 4.22 Hgb 12.1 Hct 37.0 MCV 87.7 MCH 28.7 MCHC 32.7 RDW 14.7 Plt Count 121 L MPV 8.9 Neut % (Auto) 74.2 H Lymph % (Auto) 10.0 [place] % (Auto) 13.6 H Eos % (Auto) 1.7 Baso % (Auto) 0.5 Neut # (Auto) 5.0 Lymph # (Auto) 0.7 L [place] # (Auto) 0.9 Eos # (Auto) 0.1 Baso # (Auto) 0.0 WBC Differential . Differential Comment Auto diff final PT 11.2 INR 1.1 APTT 25.9 Sodium 139 Potassium 5.0 Chloride 107 Carbon Dioxide 29.4 Anion Gap 3 L BUN 33 H Creatinine 1.16 H Estimated GFR 44 L Random Glucose 125 H Calcium 9.1 Magnesium 1.9 Total Bilirubin 0.7 AST 93 H ALT 52 Alkaline Phosphatase 96 Total Creatine Kinase Total Protein 6.1 L Albumin 3.4 Urine Color Urine Clarity Urine pH Ur Specific [place] Urine Protein Urine Glucose (UA) Urine Ketones Urine Occult Blood Urine Nitrate Urine Bilirubin Urine Urobilinogen Ur Leukocyte Esterase Urine RBC Urine WBC Urine WBC Clumps Ur Squamous Epith Cells Urine Bacteria Urine Mucus Micro UA Comment Ur Microscopic Review Urine Culture Comments 11/03/18 11/04/18 11/04/18 16:13 04:30 09:40 WBC RBC Hgb Hct MCV MCH MCHC RDW Plt Count MPV Neut % (Auto) Lymph % (Auto) [place] % (Auto) Eos % (Auto) Baso % (Auto) Neut # (Auto) Lymph # (Auto) [place] # (Auto) Eos # (Auto) Baso # (Auto) WBC Differential Differential Comment PT INR APTT Sodium 139 Potassium 5.0 Chloride 105 Carbon Dioxide 25.9 Anion Gap 8 BUN 34 H Creatinine 1.26 H Estimated GFR 40 L Random Glucose 122 H Calcium 8.5 Magnesium Total Bilirubin AST ALT Alkaline Phosphatase Total Creatine Kinase 77 Total Protein Albumin Urine Color Yellow Urine Clarity Hazy H Urine pH 5.0 Ur Specific [place] 1.020 Urine Protein Negative Urine Glucose (UA) Negative Urine Ketones Negative Urine Occult Blood Negative Urine Nitrate Negative Urine Bilirubin Negative Urine Urobilinogen Less than 2 Ur Leukocyte Esterase Moderate H Urine RBC 1 Urine WBC 74 H Urine WBC Clumps Few H Ur Squamous Epith Cells <1 Urine Bacteria Few H Urine Mucus Few H Micro UA Comment Cath-culture ind Ur Microscopic Review Not Reportable Urine Culture Comments Cath-cult indicated - Imaging Impressions Hip X-Ray 11/03/18 00:00 CONCLUSION: 1. Right hip arthroplasty in gross anatomic alignment without acute fracture. Head CT 11/03/18 14:37 CONCLUSION: 1. Mild cerebral atrophy. 2. Moderate to severe periventricular and subcortical white matter small vessel ischemic changes bilaterally. 3. 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 4. No acute infarct, acute hemorrhage, midline shift or extra-axial fluid collections. . Hip X-Ray 11/03/18 14:37 CONCLUSION: New transverse nondisplaced impaction fracture through the neck of the proximal right femur. Chest X-Ray 11/03/18 15:14 CONCLUSION: 1. No acute cardiopulmonary disease. 2. Degenerative changes and scoliosis of the thoracolumbar spine. 3. Degenerative changes and possible rotator cuff pathology involving the shoulders bilaterally. Assessment and Plan - Plan 88-year-old female with a history of lupus, chronic back pain, hypertension, sleep disorder, hypothyroidism and anxiety. She presented to the emergency department 11/03 with complaints of right hip pain after a fall. Transverse nondisplaced impacted right femur fracture status post fall. -Orthopedic services consulted, s/p right hip hemiarthroplasty 11/[address] King -Weightbearing as tolerated -Hip dressing in place times 1 week then removed and cleaned with alcohol and apply new dry dressing. -Pain control with p.o. [place], IV morphine for breakthrough pain Renal insufficiency -Continue to encourage oral intake, continue gentle hydration - Monitor labs Urinary retention Possible UTI -Continue Ortez catheter -Start bethanechol, DC Ortez tomorrow, monitor for voiding -Start p.o. Cipro, monitor urine culture for sensitivity - UTI possibly cause of confusion Slightly elevated AST - CMP tomorrow DVT prophylaxissubcu Lovenox Discussed Condition With: Patient, RN, son. Discharge Planning: Patient will need senior care facility, case management reached out to son who will make decision regarding facility once cleared by Ortho.
[2018-11-04] MEDS: Sodium Chloride 0.45 % Inj 1,000 ML IV.CONT SCH (16:38)
[2018-11-04] MEDS: Ciprofloxacin 250 MG Tablet PO SCH (21:02)
[2018-11-04] MEDS ORDERED: Enoxaparin Inj 40 MG/0.4 ML Syringe SQ SCH (22:00)
[2018-11-04] MEDS: Enoxaparin Inj 30 MG/0.3 ML Syringe SQ SCH (22:30)
[2018-11-05] MEDS: Levothyroxine 88 MCG Tablet PO SCH (06:13)
[2018-11-05 06:32] LABS: Alanine Aminotransferase 38 U/L (10-53); Albumin 2.5 g/dL (3.4-5.0); Anion Gap 8 meq/L (5-15); Aspartate Aminotransferase 52 U/L (15-37); Blood Urea Nitrogen 42 mg/dL (7-18); Calcium 8.2 mg/dL (8.5-10.1); Carbon Dioxide 26.5 meq/L (21.0-32.0); Chloride 103 meq/L (98-107); Glomerular Filtration Rate 30 mL/min (>89); Glucose,Random 100 mg/dL (74-106); Potassium 4.3 meq/L (3.5-5.1); Sodium 137 meq/L (136-145)
[2018-11-05 06:34] LABS: Alkaline Phosphatase 93 U/L (45-117); Total Protein 5.1 g/dL (6.4-8.2)
[2018-11-05] MEDS ORDERED: Acetaminophen 325 MG Tablet PO PRN (07:56)
[2018-11-05] MEDS: Tolterodine Tartrate LA 4 MG Capsule PO SCH (08:42)
[2018-11-05] MEDS: Duloxetine 60 MG DR Capsule PO SCH (08:42)
[2018-11-05] MEDS: Acetaminophen 325 MG Tablet PO PRN (08:42)
[2018-11-05] MEDS: Atenolol 25 MG Tablet PO SCH (08:42)
[2018-11-05] MEDS: Senna/Docusate Sodium 8.6/50 MG Tablet PO SCH ×2 (08:42→20:52)
[2018-11-05] MEDS: traZODone 50 MG Tablet PO SCH (08:42)
[2018-11-05] MEDS: Ciprofloxacin 250 MG Tablet PO SCH ×2 (08:42→20:52)
--- NOTE | 2018-11-05 09:35 | P.PNOP ---
Subjective Interval history: Patient appears comfortable. Confused. OOB sitting in recliner. Neighbor present. Physical Exam Vital signs: Vital Signs 11/04/18 09:38 11/04/18 12:00 11/04/18 16:00 Temperature 97.8 F 97.2 F L Pulse Rate 70 59 L Respiratory Rate 18 18 Blood Pressure 138/56 L 119/55 L Pulse Oximetry 98 88 L 90 L 11/04/18 19:41 11/04/18 20:00 11/04/18 23:45 Temperature 101.1 F H 98.4 F Pulse Rate 70 70 Respiratory Rate 19 18 Blood Pressure 119/56 L 99/49 L Pulse Oximetry 98 94 L 98 11/05/18 04:47 11/05/18 08:00 Temperature 98.2 F 97.8 F Pulse Rate 68 62 Respiratory Rate 17 18 Blood Pressure 129/58 L 99/49 L Pulse Oximetry 96 94 L Intake & Output 11/04/18 11/05/18 11/05/18 18:59 06:59 18:59 Intake Total 1820 / 1820 270 / 270 Output Total 450 / 450 200 / 200 Balance 1370 / 1370 70 / 70 Weight 47.5 kg Intake: IV 1100 / 1100 1/2 Normal Saline Inj 1,000 ML 1000 / 1000 @ 50 mls/hr IV.CONT .Q20H [facility] Rx#:[id number] Ancef Inj 1 GM In NS Inj 100 ML 100 / 100 @ 200 mls/hr IV.SIG Q8H [facility] Rx #:[id number] Oral 720 / 720 270 / 270 Output: Urine 450 / 450 Urine Amount (Catheter) 200 / 200 Indwelling Urethral Catheter 200 / 200 Other: Date of Last Bowel Movement 11/02/18 11/02/18 11/03/18 # Bowel Movements 0 0 Narrative: Right hip dressing C/D/I no signs of infection or drainage noted calves soft negative [place] NVI - Urinary Catheter Management Indwelling Urethral Catheter Cath placed during this visit: yes Reason for continuing: Acute urinary retention Insertion date: 11/04/18 Insertion time: 10:30 Results - Labs CBC & Chem 7: 11/03/18 15:42 11/05/18 05:52 Laboratory Results - last 24 hr 11/04/18 11/05/18 09:40 05:52 Sodium 137 Potassium 4.3 Chloride 103 Carbon Dioxide 26.5 Anion Gap 8 BUN 42 H Creatinine 1.62 H Estimated GFR 30 L Random Glucose 100 Calcium 8.2 L Total Bilirubin 0.5 AST 52 H ALT 38 Alkaline Phosphatase 93 Total Protein 5.1 L D Albumin 2.5 L D Urine Color Yellow Urine Clarity Hazy H Urine pH 5.0 Ur Specific [place] 1.020 Urine Protein Negative Urine Glucose (UA) Negative Urine Ketones Negative Urine Occult Blood Negative Urine Nitrate Negative Urine Bilirubin Negative Urine Urobilinogen Less than 2 Ur Leukocyte Esterase Moderate H Urine RBC 1 Urine WBC 74 H Urine WBC Clumps Few H Ur Squamous Epith Cells <1 Urine Bacteria Few H Urine Mucus Few H Micro UA Comment Cath-culture ind Ur Microscopic Review Not Reportable Urine Culture Comments Cath-cult indicated Assessment and Plan - Problem List (1) Displaced fracture of right femoral neck Code(s): S72.001A - Fracture of unspecified part of neck of right femur, initial encounter for closed fracture Status: Acute - Assessment and Plan POD #2 Right Hip Hemiarthroplasty Pain management Medical management Physical therapy - WBAT. Hip precautions Leave dressing in place x 1 week. If there is significant drainage, then remove dressing Clean with alcohol and apply a new dry dressing. Orthopedically stable for discharge. Will need medical clearance D/C planning- anticipating SNF F/U in [address] King or JAKOB in office.
--- NOTE | 2018-11-05 10:26 | P.PN ---
Subjective Interval history: Follow-up visit for right femur fracture, acute kidney injury and UTI. Patient seen and examined sitting up in chair in no acute distress. She is oriented to self but states that she is not yet had her surgery, nurse also notes some confusion. Confusion possibly secondary to urinary tract infection, currently on Cipro. Patient is also complaining of right hip pain. Denies any nausea, vomiting, diarrhea, headache, cough, shortness of breath or chest pain. Patient seen later on around 3 PM due to hypotension BP 84/48 with heart rate of 50. Of note patient did receive her morning atenolol of 25 mg. Patient is awake, alert and oriented to self, following commands, generally weak, speech is clear, no facial droop. s/p 500 mL bolus of NS with BP improved to 103/54, heart rate 55. O2 saturation 88% on room air, provided with nasal cannula 2 L, ABG reviewed, stable, CBC with H&H 9.3/26.5, possibly dilutional component. Physical Exam Vital signs: Vital Signs 11/04/18 12:00 11/04/18 16:00 11/04/18 19:41 Temperature 97.8 F 97.2 F L Pulse Rate 70 59 L Respiratory Rate 18 18 Blood Pressure 138/56 L 119/55 L Pulse Oximetry 88 L 90 L 98 11/04/18 20:00 11/04/18 23:45 11/05/18 04:47 Temperature 101.1 F H 98.4 F 98.2 F Pulse Rate 70 70 68 Respiratory Rate 19 18 17 Blood Pressure 119/56 L 99/49 L 129/58 L Pulse Oximetry 94 L 98 96 11/05/18 08:00 Temperature 97.8 F Pulse Rate 62 Respiratory Rate 18 Blood Pressure 99/49 L Pulse Oximetry 94 L Intake & Output 11/04/18 11/05/18 11/05/18 18:59 06:59 18:59 Intake Total 1820 / 1820 270 / 270 Output Total 450 / 450 200 / 200 Balance 1370 / 1370 70 / 70 Weight 47.5 kg Intake: IV 1100 / 1100 1/2 Normal Saline Inj 1,000 ML 1000 / 1000 @ 50 mls/hr IV.CONT .Q20H [facility] Rx#:[id number] Ancef Inj 1 GM In NS Inj 100 ML 100 / 100 @ 200 mls/hr IV.SIG Q8H [facility] Rx #:[id number] Oral 720 / 720 270 / 270 Output: Urine 450 / 450 Urine Amount (Catheter) 200 / 200 Indwelling Urethral Catheter 200 / 200 Other: Date of Last Bowel Movement 11/02/18 11/02/18 11/03/18 # Bowel Movements 0 0 Narrative: GENERAL: Well-developed, well-nourished in no distress. SKIN: Warm and dry. HEAD: Atraumatic. Normocephalic. EYES: Pupils equal and round. No scleral icterus. No injection or drainage. ENT: No nasal bleeding or discharge. Mucous membranes pink and moist. NECK: Trachea midline. CARDIOVASCULAR: Regular rhythm. RESPIRATORY: No accessory muscle use. Clear to auscultation. Breath sounds equal bilaterally. GASTROINTESTINAL/: Abdomen soft, non-tender, nondistended. Ortez catheter with clear yellow urine. MUSCULOSKELETAL: Extremities without clubbing, cyanosis, or edema. Right hip dressing dry and intact. RLE with + dorsalis pedis pulse, + sensation and movement. NEUROLOGICAL: Awake and alert. No obvious cranial nerve deficits. Motor grossly within normal limits. Normal speech. PSYCHIATRIC: Poor historian. - Urinary Catheter Management Indwelling Urethral Catheter Cath placed during this visit: yes Reason for continuing: Acute urinary retention Insertion date: 11/04/18 Insertion time: 10:30 Results - Labs CBC & Chem 7: 11/05/18 15:20 11/05/18 05:52 Laboratory Results - last 24 hr 11/04/18 11/05/18 09:40 05:52 Sodium 137 Potassium 4.3 Chloride 103 Carbon Dioxide 26.5 Anion Gap 8 BUN 42 H Creatinine 1.62 H Estimated GFR 30 L Random Glucose 100 Calcium 8.2 L Total Bilirubin 0.5 AST 52 H ALT 38 Alkaline Phosphatase 93 Total Protein 5.1 L D Albumin 2.5 L D Urine Color Yellow Urine Clarity Hazy H Urine pH 5.0 Ur Specific [place] 1.020 Urine Protein Negative Urine Glucose (UA) Negative Urine Ketones Negative Urine Occult Blood Negative Urine Nitrate Negative Urine Bilirubin Negative Urine Urobilinogen Less than 2 Ur Leukocyte Esterase Moderate H Urine RBC 1 Urine WBC 74 H Urine WBC Clumps Few H Ur Squamous Epith Cells <1 Urine Bacteria Few H Urine Mucus Few H Micro UA Comment Cath-culture ind Ur Microscopic Review Not Reportable Urine Culture Comments Cath-cult indicated Assessment and Plan - Plan 88-year-old female with a history of lupus, chronic back pain, hypertension, sleep disorder, hypothyroidism and anxiety. She presented to the emergency department 11/03 with complaints of right hip pain after a fall. Transverse nondisplaced impacted right femur fracture status post fall. -Orthopedic services consulted, s/p right hip hemiarthroplasty 11/[address] King -Weightbearing as tolerated -Hip dressing in place times 1 week then removed and cleaned with alcohol and apply new dry dressing. -Pain control with p.o. [place], IV morphine for breakthrough pain -Patient only received p.o. 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
[2018-11-05] MEDS ORDERED: Sodium Chlor 0.9% Inj 500 ML IV.SIG ONE (14:00)
[2018-11-05] MEDS: Sodium Chloride 0.45 % Inj 1,000 ML IV.CONT SCH ×2 (14:44→22:01)
[2018-11-05 15:38] LABS: ABG Base Excess -2.3 mmol/L (-2-2); ABG PCO2 35 mmHg (38-42); ABG PO2 167 mmHg (61-120)
[2018-11-05 15:43] LABS: Baso % (Auto) 0.2 % (0.0-2.0); Eos # (Auto) 0.1 th/mm3 (0.0-0.4); Eos % (Auto) 1.2 % (0.0-4.0); Hematocrit 26.5 % (35.0-46.0); Hemoglobin 9.3 gm/dL (11.6-15.3); Lymph # (Auto) 0.9 th/mm3 (1.0-4.8); Lymph % (Auto) 9.9 % (9.0-44.0); Mean Corpuscular Hemoglobin 30.1 pg (27.0-34.0); Mean Corpuscular Volume 86.1 fL (80.0-100.0); Mono # (Auto) 1.5 th/mm3 (0.0-0.9); Mono % (Auto) 16.5 % (0.0-8.0); Neut # (Auto) 6.4 th/mm3 (1.8-7.7); Neut % (Auto) 72.2 % (16.0-70.0); Platelet Count 105 th/mm3 (150-450); Red Blood Count 3.08 mil/mm3 (4.00-5.30); White Blood Count 8.8 th/mm3 (4.0-11.0)
[2018-11-05] MEDS: Enoxaparin Inj 30 MG/0.3 ML Syringe SQ SCH (22:03)
[2018-11-06] MEDS: Sodium Chloride 0.45 % Inj 1,000 ML IV.CONT SCH ×3 (03:16→21:45)
[2018-11-06 04:58] LABS: Carbon Dioxide 24.1 meq/L (21.0-32.0); Potassium 4.5 meq/L (3.5-5.1)
[2018-11-06] MEDS: Levothyroxine 88 MCG Tablet PO SCH (06:19)
[2018-11-06] MEDS: Ciprofloxacin 250 MG Tablet PO SCH ×2 (09:12→21:44)
[2018-11-06] MEDS: traZODone 50 MG Tablet PO SCH (09:12)
[2018-11-06] MEDS: Tolterodine Tartrate LA 4 MG Capsule PO SCH (09:12)
[2018-11-06] MEDS: Senna/Docusate Sodium 8.6/50 MG Tablet PO SCH ×2 (09:13→21:45)
[2018-11-06] MEDS: Duloxetine 60 MG DR Capsule PO SCH (09:15)
--- NOTE | 2018-11-06 09:37 | P.PN ---
Subjective Interval history: Follow-up visit for right femur fracture, acute kidney injury and UTI. Patient seen and examined, agitated. Oriented to self only, BP improved as well as HR. Last norco was 11/04. Unable to obtain ROS. Pt. with hx of dementia. No fever reported. Physical Exam Vital signs: Vital Signs 11/05/18 12:00 11/05/18 15:15 11/05/18 16:00 Temperature 97.6 F 97.9 F Pulse Rate 50 L 55 L 55 L Respiratory Rate 18 16 20 Blood Pressure 84/48 L 103/54 L 92/52 L Pulse Oximetry 98 93 L 100 11/05/18 19:30 11/05/18 20:00 11/05/18 23:32 Temperature 97.9 F 97.8 F Pulse Rate 57 L 57 L Respiratory Rate 17 16 16 Blood Pressure 105/54 L 109/55 L Pulse Oximetry 96 99 11/06/18 03:46 11/06/18 08:31 Temperature 98.1 F 98.1 F Pulse Rate 58 L 65 Respiratory Rate 16 19 Blood Pressure 111/56 L 122/56 L Pulse Oximetry 99 100 Intake & Output 11/05/18 11/06/18 11/06/18 18:59 06:59 18:59 Intake Total 1000 / 1000 1000 / 1000 Output Total 675 / 675 Balance 1000 / 1000 325 / 325 Weight 49.3 kg Intake: IV 1000 / 1000 1000 / 1000 1/2 Normal Saline Inj 1,000 ML 1000 / 1000 1000 / 1000 @ 84 mls/hr IV.CONT .[id number] [facility] Rx#:[id number] Output: Urine 200 / 200 Urine Amount (Catheter) 475 / 475 Indwelling Urethral Catheter 475 / 475 Other: Date of Last Bowel Movement 11/03/18 11/03/18 Narrative: GENERAL: Well-developed, well-nourished in no distress. SKIN: Warm and dry. HEAD: Atraumatic. Normocephalic. EYES: Pupils equal and round. No scleral icterus. No injection or drainage. ENT: No nasal bleeding or discharge. Mucous membranes pink and moist. NECK: Trachea midline. CARDIOVASCULAR: Regular rhythm. RESPIRATORY: No accessory muscle use. Clear to auscultation. Breath sounds equal bilaterally. GASTROINTESTINAL/: Abdomen soft, non-tender, nondistended. Pappas catheter with clear yellow urine. MUSCULOSKELETAL: Extremities without clubbing, cyanosis, or edema. Right hip dressing dry and intact. RLE with + dorsalis pedis pulse, + sensation and movement. NEUROLOGICAL: Awake, oriented to self only, disoriented and agitated. Moves all ext. well, speech clear. Not making sense. PSYCHIATRIC: demented - Urinary Catheter Management Indwelling Urethral Catheter Cath placed during this visit: yes Reason for continuing: Acute urinary retention Insertion date: 11/04/18 Insertion time: 10:30 Results - Labs CBC & Chem 7: 11/06/18 10:45 11/06/18 04:07 Laboratory Results - last 24 hr 11/04/18 11/05/18 11/05/18 09:40 15:20 15:35 WBC 8.8 RBC 3.08 L Hgb 9.3 L D Hct 26.5 L MCV 86.1 MCH 30.1 MCHC 35.0 RDW 15.0 Plt Count 105 L MPV 9.0 Neut % (Auto) 72.2 H Lymph % (Auto) 9.9 [place] % (Auto) 16.5 H Eos % (Auto) 1.2 Baso % (Auto) 0.2 Neut # (Auto) 6.4 Lymph # (Auto) 0.9 L [place] # (Auto) 1.5 H Eos # (Auto) 0.1 Baso # (Auto) 0.0 WBC Differential . Differential Comment Auto diff final Puncture Site Right radial Patient Temperature 98.6 O2 Saturation 97 ABG pH 7.41 ABG pCO2 35 L ABG pO2 167 H ABG HCO3 22 ABG O2 Content 12.8 ABG Base Excess -2.3 L ABG Methemoglobin 1.4 Martir Test Present Hemoglobin 9.1 L Carboxyhemoglobin 1.5 O2 Delivery Device Nasal cannula Liter Flow 2.00 Critical Value No Sodium Potassium Chloride Carbon Dioxide Anion Gap BUN Creatinine Estimated GFR Random Glucose Calcium Urine Color Yellow Urine Clarity Hazy H Urine pH 5.0 Ur Specific [place] 1.020 Urine Protein Negative Urine Glucose (UA) Negative Urine Ketones Negative Urine Occult Blood Negative Urine Nitrate Negative Urine Bilirubin Negative Urine Urobilinogen Less than 2 Ur Leukocyte Esterase Moderate H Urine RBC 1 Urine WBC 74 H Urine WBC Clumps Few H Ur Squamous Epith Cells <1 Urine Bacteria Few H Urine Mucus Few H Micro UA Comment Cath-culture ind Urine Culture Comments Cath-cult indicated 11/06/18 04:07 WBC RBC Hgb Hct MCV MCH MCHC RDW Plt Count MPV Neut % (Auto) Lymph % (Auto) [place] % (Auto) Eos % (Auto) Baso % (Auto) Neut # (Auto) Lymph # (Auto) [place] # (Auto) Eos # (Auto) Baso # (Auto) WBC Differential Differential Comment Puncture Site Patient Temperature O2 Saturation ABG pH ABG pCO2 ABG pO2 ABG HCO3 ABG O2 Content ABG Base Excess ABG Methemoglobin Martir Test Hemoglobin Carboxyhemoglobin O2 Delivery Device Liter Flow Critical Value Sodium 136 Potassium 4.5 Chloride 105 Carbon Dioxide 24.1 Anion Gap 7 BUN 41 H Creatinine 1.35 H Estimated GFR 37 L Random Glucose 81 Calcium 8.0 L Urine Color Urine Clarity Urine pH Ur Specific [place] Urine Protein Urine Glucose (UA) Urine Ketones Urine Occult Blood Urine Nitrate Urine Bilirubin Urine Urobilinogen Ur Leukocyte Esterase Urine RBC Urine WBC Urine WBC Clumps Ur Squamous Epith Cells Urine Bacteria Urine Mucus Micro UA Comment Urine Culture Comments Microbiology 11/04/18 09:40 Clean Catch Urine Urine Culture - Preliminary gram negative rods Assessment and Plan - Assessment (1) Displaced fracture of right femoral neck Code(s): S72.001A - Fracture of unspecified part of neck of right femur, initial encounter for closed fracture Status: Acute (2) Dementia Code(s): F03.90 - Unspecified dementia without behavioral disturbance Status: Chronic (3) ADELA (acute kidney injury) Code(s): N17.9 - Acute kidney failure, unspecified Status: Acute - Plan 88-year-old female with a history of lupus, chronic back pain, hypertension, sleep disorder, hypothyroidism and anxiety. She presented to the emergency department 11/03 with complaints of right hip pain after a fall. Transverse nondisplaced impacted right femur fracture status post fall. -Orthopedic services consulted, s/p right hip hemiarthroplasty 11/[address] King -Weightbearing as tolerated -Hip dressing in place times 1 week then removed and cleaned with alcohol and apply new dry dressing. -Pain control with p.o. [place], IV morphine for breakthrough pain -limit narcotic and use Tylenol PRN, disoriented today Renal insufficiency -Creatinine 1.62 yesterday, better today 1.35. Continue with NS at 84 -Continue to monitor renal function closely -avoid nephrotoxic agents Urinary retention UTIcitrobacter freundii -dc pappas, monitor for voiding -continue Bethanechol -Continue oral Cipro, sens noted Hypotension, acute 11/05 -Likely secondary to atenolol dose, dec. to 12.5 -BP better today -HH stable -continue with IVF Slightly elevated AST -Improved Dementia, inc. agitation today -Continue Xanax PRN -Continue Aricept DVT prophylaxissubcu Lovenox CM for dc planning HH ordered, stable Renal fx better continue with PT Cleared by ortho for discharge Discharge to SNF F/U Dr. King 2 weeks Code Status: Full code Discussed Condition With: RN, pt Discharge Planning: to [facility] today or tomorrow E-FORCSE Prescription Drug Monitoring Database has been queried and verified prior to prescribing the controlled substance. Acute pain exception. This patient has normal, predicted, physiological, and time limited response to an adverse mechanical stimulus associated with surgery, trauma, or acute illness as described in my notes. There is a lack of alternative treatment options other than to include the prescribed narcotic treatment for this condition. Pt. given Rx for Alprazolam and [place] 2017.
[2018-11-06] MEDS: Atenolol 25 MG Tablet PO SCH (09:39)
[2018-11-06] MEDS: ALPRAZolam 0.25 MG Tablet PO PRN ×2 (10:07→17:47)
[2018-11-06 11:41] LABS: Hematocrit 28.2 % (35.0-46.0); Hemoglobin 9.5 gm/dL (11.6-15.3)
--- NOTE | 2018-11-06 15:46 | P.DS ---
Date of admission: 11/03/18 16:26 Primary care physician: Twan Mayorga MD Anticipated date of discharge: 11/06/18 Brief History from admission: This is a 88-year-old female with a history of lupus, chronic back pain, hypertension, sleep disorder, hypothyroidism and anxiety. She presents to the emergency department complaining of right hip pain after a fall today. Patient states she was getting out of the bathroom when she slipped and fell and landed on her right hip. Since then she was not able to get up because of severe right hip pain worse with movement. She also hit her head but denies loss of consciousness. Denies any symptoms prior to the fall. Trauma workup shows right femur fracture and ED recommended admission by medical service with consult orthopedic surgery. At this time patient complains of right hip pain as well as lower back pain. No radiculopathy, neuropathy or incontinence. EKG independently reviewed by me with sinus bradycardia rate of 51 on beta-jimena. CHEST X-RAY: No infiltrate, pneumothorax or mediastinal widening. Image interpreted by me. All other systems reviewed negative DS: Diagnosis - Discharge Diagnosis (1) Displaced fracture of right femoral neck Status: Acute (2) Dementia Status: Chronic (3) ADELA (acute kidney injury) Status: Acute DS: Medications - Discharge Medications Prescriptions: alprazolam 0.25 mg PO BID 2 Days #4 tab ciprofloxacin HCl 250 mg PO Q12HR 3 Days #6 tab DS: Summary Hospital Course: 88-year-old female with a history of lupus, chronic back pain, hypertension, sleep disorder, hypothyroidism and anxiety. She presented to the emergency department 11/03 with complaints of right hip pain after a fall. Transverse nondisplaced impacted right femur fracture status post fall. -Orthopedic services consulted, s/p right hip hemiarthroplasty 11/[address] King -Weightbearing as tolerated -Hip dressing in place times 1 week then removed and cleaned with alcohol and apply new dry dressing. -Pain control with p.o. [place], IV morphine for breakthrough pain ordered Renal insufficiency -Creatinine 1.62 yesterday, improved 1.35. -Continued to monitor renal function closely -avoided nephrotoxic agents Urinary retention UTIcitrobacter freundii -dc'd pappas -continued Bethanechol -Continued oral Cipro, sens noted Had Hypotension, acute 11/05/2018 -Likely secondary to atenolol dose, dec. to 12.5 -BP improved -HH stable Slightly elevated AST -Improved Dementia, had agitation post op -Continued Xanax PRN -Continued Aricept Pt. improved, CM followed. Recommended SNF, pt's son and agreed and picked SNF Cleared by ortho for discharge Discharged to SNF F/U Dr. King 2 weeks - Time Spent with Patient Total time spent providing and/or coordinating discharge services: 45 minutes Greater than 30 minutes - Quality: VTE Deep Vein Thrombosis/Pulmonary Embolism Present on Admission: No Exam Vital signs: Vital Signs 11/05/18 16:00 11/05/18 19:30 11/05/18 20:00 Temperature 97.9 F 97.9 F Pulse Rate 55 L 57 L Respiratory Rate 20 17 16 Blood Pressure 92/52 L 105/54 L Pulse Oximetry 100 96 11/05/18 23:32 11/06/18 03:46 11/06/18 08:31 Temperature 97.8 F 98.1 F 98.1 F Pulse Rate 57 L 58 L 65 Respiratory Rate 16 16 19 Blood Pressure 109/55 L 111/56 L 122/56 L Pulse Oximetry 99 99 100 11/06/18 12:47 Temperature 97.9 F Pulse Rate 63 Respiratory Rate 16 Blood Pressure 119/56 L Pulse Oximetry 100 Intake & Output 11/05/18 11/06/18 11/06/18 18:59 06:59 18:59 Intake Total 1000 / 1000 1000 / 1000 1000 / 1000 Output Total 675 / 675 600 / 600 Balance 1000 / 1000 325 / 325 400 / 400 Weight 49.3 kg Intake: IV 1000 / 1000 1000 / 1000 1000 / 1000 1/2 Normal Saline Inj 1,000 ML 1000 / 1000 1000 / 1000 1000 / 1000 @ 84 mls/hr IV.CONT .[id number] [facility] Rx#:[id number] Output: Urine 200 / 200 Urine Amount (Catheter) 475 / 475 600 / 600 Indwelling Urethral Catheter 475 / 475 600 / 600 Other: Date of Last Bowel Movement 11/03/18 11/03/18 Results Procedures completed during hospitalization: s/p right hip hemiarthroplasty 11/[address] King Labs on day of discharge: Labs from last 24 hours 11/06/18 11/06/18 11/05/18 10:45 04:07 15:20 WBC 8.8 RBC 3.08 L Hgb 9.5 L 9.3 L D Hct 28.2 L 26.5 L MCV 86.1 MCH 30.1 MCHC 35.0 RDW 15.0 Plt Count 105 L MPV 9.0 Neut % (Auto) 72.2 H Lymph % (Auto) 9.9 [place] % (Auto) 16.5 H Eos % (Auto) 1.2 Baso % (Auto) 0.2 Neut # (Auto) 6.4 Lymph # (Auto) 0.9 L [place] # (Auto) 1.5 H Eos # (Auto) 0.1 Baso # (Auto) 0.0 WBC Differential . Differential Comment Auto diff final Sodium 136 Potassium 4.5 Chloride 105 Carbon Dioxide 24.1 Anion Gap 7 BUN 41 H Creatinine 1.35 H Estimated GFR 37 L Random Glucose 81 Calcium 8.0 L - Impressions ITS Impressions Head CT 11/03/18 14:37 CONCLUSION: 1. Mild cerebral atrophy. 2. Moderate to severe periventricular and subcortical white matter small vessel ischemic changes bilaterally. 3. 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 4. No acute infarct, acute hemorrhage, midline shift or extra-axial fluid collections. . Hip X-Ray 11/03/18 14:37 CONCLUSION: New transverse nondisplaced impaction fracture through the neck of the proximal right femur. Chest X-Ray 11/03/18 15:14 CONCLUSION: 1. No acute cardiopulmonary disease. 2. Degenerative changes and scoliosis of the thoracolumbar spine. 3. Degenerative changes and possible rotator cuff pathology involving the shoulders bilaterally. Discharge Plan - Discharge Disposition Patient Disposition: 03 Discharge to SNF - Discharge Condition Condition: Good - Discharge Order Discharge Orders: Discharge Order (Routine); Ordered 11/06/18 Ordered By: Mercedez Kruse ED Use Only Admit Order (Routine); Ordered 11/03/18 Ordered By: Geovany Guerrero - Physicians Team Primary Care Provider: Twan Mayorga Attending Provider: Delbert Velazquez Other Providers: Johnson King MD ; [facility],[place]
[2018-11-06] MEDS: Acetaminophen 325 MG Tablet PO PRN (18:27)
[2018-11-06] MEDS: Enoxaparin Inj 30 MG/0.3 ML Syringe SQ SCH (21:44)
[2018-11-07] MEDS: Acetaminophen 325 MG Tablet PO PRN ×2 (00:37→09:37)
[2018-11-07 01:04] VITALS: O2SAT 96
[2018-11-07] MEDS: Levothyroxine 88 MCG Tablet PO SCH (05:15)
[2018-11-07] MEDS: Sodium Chloride 0.45 % Inj 1,000 ML IV.CONT SCH ×2 (05:18→11:27)
--- NOTE | 2018-11-07 08:30 | P.PN ---
Subjective Interval history: Follow-up visit for right femur fracture, acute kidney injury and UTI. Patient seen and examined, oriented to self. Yesterday, dc held, had not had BM yet. Had BM yesterday. Pappas dc'd yesterday, had difficulty voiding but finally was able to void. No fever. Painful today Physical Exam Vital signs: Vital Signs 11/06/18 08:31 11/06/18 12:47 11/06/18 15:40 Temperature 98.1 F 97.9 F 97.1 F L Pulse Rate 65 63 65 Respiratory Rate 19 16 19 Blood Pressure 122/56 L 119/56 L 140/54 L Pulse Oximetry 100 100 98 11/06/18 19:00 11/06/18 19:29 11/06/18 23:52 Temperature 98.4 F 98.0 F Pulse Rate 73 69 Respiratory Rate 17 18 18 Blood Pressure 112/54 L 152/91 H Pulse Oximetry 98 96 11/07/18 01:31 Temperature Pulse Rate Respiratory Rate 18 Blood Pressure Pulse Oximetry Intake & Output 11/06/18 11/07/18 11/07/18 18:59 06:59 18:59 Intake Total 1600 / 1600 1120 / 1120 Output Total 1001 / 1001 Balance 599 / 599 1120 / 1120 Weight 46.8 kg Intake: IV 1000 / 1000 1000 / 1000 1/2 Normal Saline Inj 1,000 ML 1000 / 1000 1000 / 1000 @ 84 mls/hr IV.CONT .[id number] [facility] Rx#:[id number] Oral 600 / 600 120 / 120 Output: Urine 400 / 400 Urine/Stool Mix 1 / 1 Urine Amount (Catheter) 600 / 600 Indwelling Urethral Catheter 600 / 600 Other: # Voids 1 # Incontinent Voids 1 2 # Urine Diapers 1 Date of Last Bowel Movement 11/06/18 11/06/18 # Bowel Movements 0 # Incontinent Bowel Movements 1 Narrative: GENERAL: Well-developed, well-nourished in no distress. SKIN: Warm and dry. HEAD: Atraumatic. Normocephalic. EYES: Pupils equal and round. No scleral icterus. No injection or drainage. ENT: No nasal bleeding or discharge. Mucous membranes pink and moist. NECK: Trachea midline. CARDIOVASCULAR: Regular rhythm. RESPIRATORY: No accessory muscle use. Clear to auscultation. Breath sounds equal bilaterally. GASTROINTESTINAL/: Abdomen soft, non-tender, nondistended. Pappas catheter with clear yellow urine. MUSCULOSKELETAL: Extremities without clubbing, cyanosis, or edema. Right hip dressing dry and intact. RLE with + dorsalis pedis pulse, + sensation and movement. NEUROLOGICAL: Awake, oriented to self only, less agitated. Moves all ext. well, speech clear. PSYCHIATRIC: demented - Urinary Catheter Management Indwelling Urethral Catheter Cath placed during this visit: yes, but has since been removed by the nurse Reason for continuing: Decision to DC catheter Insertion date: 11/04/18 Insertion time: 10:30 Removal date: 11/06/18 Removal time: 10:00 Results - Labs CBC & Chem 7: 11/06/18 10:45 11/06/18 04:07 Laboratory Results - last 24 hr 11/06/18 10:45 Hgb 9.5 L Hct 28.2 L Microbiology 11/04/18 09:40 Clean Catch Urine Urine Culture - Final Citrobacter freundii - Procedures s/p right hip hemiarthroplasty 11/[address] King Assessment and Plan - Assessment (1) Displaced fracture of right femoral neck Code(s): S72.001A - Fracture of unspecified part of neck of right femur, initial encounter for closed fracture Status: Acute (2) Dementia Code(s): F03.90 - Unspecified dementia without behavioral disturbance Status: Chronic (3) ADELA (acute kidney injury) Code(s): N17.9 - Acute kidney failure, unspecified Status: Acute - Plan 88-year-old female with a history of lupus, chronic back pain, hypertension, sleep disorder, hypothyroidism and anxiety. She presented to the emergency department 11/03 with complaints of right hip pain after a fall. Transverse nondisplaced impacted right femur fracture status post fall. -Orthopedic services consulted, s/p right hip hemiarthroplasty 11/[address] King -Weightbearing as tolerated -Hip dressing in place times 1 week then removed and cleaned with alcohol and apply new dry dressing. -Pain control with p.o. [place], IV morphine for breakthrough pain -PT -limit narcotic and use Tylenol PRN Renal insufficiency -Creatinine 1.62 yesterday, better 11/06 1.35. -Continue to monitor renal function closely -avoid nephrotoxic agents Urinary retention UTIcitrobacter freundii -dcd pappas, voided -continue Bethanechol -Continue oral Cipro, sens noted Hypotension, acute 11/05 -Likely secondary to atenolol dose, dec. to 12.5 -BP better today -HH stable -continue with IVF Slightly elevated AST -Improved Dementia, occ. inc. agitation -Continue Xanax PRN -Continue Aricept DVT prophylaxissubcu Lovenox CM for dc planning Had BM, now voiding stable for dc Cleared by ortho for discharge Discharge to SNF today F/U Dr. King 2 weeks Code Status: Full code Discussed Condition With: RN, pt. Discharge Planning: to SNF today E-FORCSE Prescription Drug Monitoring Database has been queried and verified prior to prescribing the controlled substance. Acute pain exception. This patient has normal, predicted, physiological, and time limited response to an adverse mechanical stimulus associated with surgery, trauma, or acute illness as described in my notes. There is a lack of alternative treatment options other than to include the prescribed narcotic treatment for this condition. Pt. given Rx for Alprazolam and [place] 2017.
[2018-11-07] MEDS: Ciprofloxacin 250 MG Tablet PO SCH (09:12)
[2018-11-07] MEDS: Atenolol 25 MG Tablet PO SCH (09:12)
[2018-11-07] MEDS: traZODone 50 MG Tablet PO SCH (09:13)
[2018-11-07] MEDS: Senna/Docusate Sodium 8.6/50 MG Tablet PO SCH (09:13)
[2018-11-07] MEDS: Duloxetine 60 MG DR Capsule PO SCH (09:13)
[2018-11-07] MEDS: Tolterodine Tartrate LA 4 MG Capsule PO SCH (09:13)
[2018-11-07 09:17] VITALS: BP 136/79; PULSE 87; RESP 19; TEMP 97.3
== END 2018-11-07 12:32 | DRG 470 ==
LOC: NEPE 14:05 → NEDA 16:26 → N06 17:15
PROVIDERS: ADMIT Hospitalist; ATTEND Hospitalist
CPT/HCPCS: 36600; 51798; 70450; 71010; 71045; 73502; 80048; 80053; 81001; 82550; 82805; 83735; 85014; 85018; 85025; 85610; 85730; 87077; 87086; 87186; 92610; 93005; 94150; 97110; 97116; 97162; 97167; 97535; 99285; C1776; C9290; G0195; J0131; J0690; J1580; J1650; J2270; J2405; J3010; J3370; J7040